=== PATIENT | female | born 1935 | race Caucasian/White ===

== ENCOUNTER 2018-01-07 10:06 | Emergency (ER) | payer MEDICARE, OTHER ==
[2018-01-07 10:45] LABS: Basophils # (A) 0.1 k/uL (0-0.2); Basophils % (A) 1 %; Eosinophils # (A) 0.1 k/uL (0-0.7); Eosinophils % (A) 1 %; HCT 38.6 % (34.0-46.0); HGB 12.5 gm/dL (11.4-16.0); Lymphocytes # (A) 1.1 k/uL (1.0-4.8); Lymphocytes % (A) 9 %; MCH 27.2 pg (25.0-35.0); MCHC 32.4 g/dL (31.0-37.0); MCV 84.1 fL (80.0-100.0); Mean Platelet Volume 6.8; Monocytes # (A) 0.7 k/uL (0-1.0); Monocytes % (A) 6 %; Neutrophils # (A) 10.3 k/uL (1.3-7.7); Neutrophils % (A) 83 %; Platelet Count 365 k/uL (150-450); RBC 4.58 m/uL (3.80-5.40); RDW 13.5 % (11.5-15.5); WBC 12.4 k/uL (3.8-10.6)
[2018-01-07 10:54] LABS: INR 1.1 (<1.2); Partial Thromboplastin Time 23.3 sec (22.0-30.0); Prothrombin Time 10.4 sec (9.0-12.0)
[2018-01-07 10:57] LABS: ALT 15 U/L (9-52); AST 19 U/L (14-36); Albumin 3.8 g/dL (3.5-5.0); Alkaline Phosphatase 95 U/L (38-126); Anion Gap 14 mmol/L; Blood Urea Nitrogen 17 mg/dL (7-17); Calcium 9.3 mg/dL (8.4-10.2); Carbon Dioxide 24 mmol/L (22-30); Chloride 104 mmol/L (98-107); Glucose 113 mg/dL (74-99); Magnesium 2.3 mg/dL (1.6-2.3); Sodium 142 mmol/L (137-145); Total Bilirubin 0.3 mg/dL (0.2-1.3); Total Protein 6.9 g/dL (6.3-8.2)
[2018-01-07 11:04] LABS: Creatine Kinase 63 U/L (30-135)
--- NOTE | 2018-01-07 11:06 | ED ---
General Adult HPI - General Chief complaint: Altered Mental Status Stated complaint: Confusion Time Seen by Provider: 01/07/18 10:10 Source: patient, EMS, RN notes reviewed Mode of arrival: EMS Limitations: no limitations - History of Present Illness Initial comments: 82-year-old female sent over for evaluation of altered mental status from her primary care's office. She has been treated for UTI over the past several days. She has been going to the doctor's office in each day requesting instructions on how to take the medication and stating that she may have misplaced or lost her medication. Patient has no complaints at the time my evaluation. She has no headache. No weakness or numbness. No chest pain or shortness of breath. No abdominal pain. She states she does have some difficulty with memory and was just trying to get information on how to take her medication. She did have dysuria prior to starting antibiotics. According to EMS she is only taken one to 2 doses of this medication. Patient is alert and oriented at the time my evaluation. - Related Data Home Medications Medication Instructions Recorded Confirmed No Known Home Medications [No 01/07/18 01/07/18 Known Home Medications] Allergies Allergy/AdvReac Type Severity Reaction Status Date / Time No Known Allergies Allergy Verified 01/07/18 11:10 Review of Systems ROS Statement: Those systems with pertinent positive or pertinent negative responses have been documented in the HPI. ROS Other: All systems not noted in ROS Statement are negative. Past Medical History Past Medical History: Hypertension History of Any Multi-Drug Resistant Organisms: None Reported Past Surgical History: Appendectomy Past Psychological History: No Psychological Hx Reported Smoking Status: Never smoker Past Alcohol Use History: None Reported Past Drug Use History: None Reported General Exam Limitations: no limitations General appearance: alert, in no apparent distress Head exam: Present: atraumatic, normocephalic Eye exam: Present: normal appearance, PERRL, EOMI ENT exam: Present: normal exam Neck exam: Present: normal inspection. Absent: tenderness, meningismus Respiratory exam: Present: normal lung sounds bilaterally. Absent: respiratory distress Cardiovascular Exam: Present: regular rate, normal rhythm GI/Abdominal exam: Present: soft. Absent: distended, tenderness Extremities exam: Present: normal inspection, normal capillary refill. Absent: pedal edema Back exam: Present: normal inspection, full ROM Neurological exam: Present: alert, oriented X3, CN II-XII intact. Absent: motor sensory deficit Psychiatric exam: Present: normal affect, normal mood Skin exam: Present: warm, dry, intact. Absent: cyanosis, diaphoretic Course Vital Signs 01/07/18 01/07/18 10:10 12:10 Temperature 98.3 F Pulse Rate 96 95 Respiratory 20 19 Rate Blood Pressure 157/86 170/79 O2 Sat by Pulse 96 98 Oximetry EKG Findings - EKG Comments: EKG Findings:: Sinus rhythm with PAC, rate of 94, WI interval 120, QRS duration 82, QTC 427, no ST segment elevation or depression Medical Decision Making - Medical Decision Making 82-year-old female presenting for concern of altered mental status from her primary care's office. Patient states she was just simply trying to get information about a medication prescribed and he called paramedics and forced her against her will to come to the emergency department. She has no complaints. She is alert and oriented 4. She is able to provide her address, location of her car and is eager for discharge. I did complete an altered mental status workup in the emergency department includes head CT which is negative for intracranial hemorrhage or mass effect. Chest x-ray negative for focal pneumonia. Mild leukocytosis of 12.4. Left leg the normal limits. Urinalysis shows 5 WBCs and 3 red cells. Urine culture is pending. Patient will be given 1 g of IV ceftriaxone. She will be given a cab ride back to her car. Patient's mental status at the time my evaluation is normal. I see no indication for further testing or treatment at this time. - Lab Data Result diagrams: 01/07/18 10:25 01/07/18 10:25 Lab Results 01/07/18 01/07/18 01/07/18 Range/Units 10:25 10:25 10:25 WBC 12.4 H (3.8-10.6) k/uL RBC 4.58 (3.80-5.40) m/uL Hgb 12.5 (11.4-16.0) gm/dL Hct 38.6 (34.0-46.0) % MCV 84.1 (80.0-100.0) fL MCH 27.2 (25.0-35.0) pg MCHC 32.4 (31.0-37.0) g/dL RDW 13.5 (11.5-15.5) % Plt Count 365 (150-450) k/uL Neutrophils % 83 % Lymphocytes % 9 % Monocytes % 6 % Eosinophils % 1 % Basophils % 1 % Neutrophils # 10.3 H (1.3-7.7) k/uL Lymphocytes # 1.1 (1.0-4.8) k/uL Monocytes # 0.7 (0-1.0) k/uL Eosinophils # 0.1 (0-0.7) k/uL Basophils # 0.1 (0-0.2) k/uL PT (9.0-12.0) sec INR (<1.2) APTT (22.0-30.0) sec Sodium 142 (137-145) mmol/L Potassium 4.0 (3.5-5.1) mmol/L Chloride 104 (98-107) mmol/L Carbon Dioxide 24 (22-30) mmol/L Anion Gap 14 mmol/L BUN 17 (7-17) mg/dL Creatinine 0.50 L (0.52-1.04) mg/dL Est GFR (CKD-EPI)AfAm >90 (>60 ml/min/1.73 sqM) Est GFR (CKD-EPI)NonAf >90 (>60 ml/min/1.73 sqM) Glucose 113 H (74-99) mg/dL Plasma Lactic Acid Lee (0.7-2.0) mmol/L Calcium 9.3 (8.4-10.2) mg/dL Magnesium 2.3 (1.6-2.3) mg/dL Total Bilirubin 0.3 (0.2-1.3) mg/dL AST 19 (14-36) U/L ALT 15 (9-52) U/L Alkaline Phosphatase 95 (38-126) U/L Total Creatine Kinase 63 (30-135) U/L CK-MB (CK-2) 1.0 (0.0-2.4) ng/mL CK-MB (CK-2) Rel Index 1.6 Troponin I <0.012 (0.000-0.034) ng/mL Total Protein 6.9 (6.3-8.2) g/dL Albumin 3.8 (3.5-5.0) g/dL Urine Color Urine Appearance (Clear) Urine pH (5.0-8.0) Ur Specific [place] (1.001-1.035) Urine Protein (Negative) Urine Glucose (UA) (Negative) Urine Ketones (Negative) Urine Blood (Negative) Urine Nitrite (Negative) Urine Bilirubin (Negative) Urine Urobilinogen (<2.0) mg/dL Ur Leukocyte Esterase (Negative) Urine RBC (0-5) /hpf Urine WBC (0-5) /hpf Ur Squamous Epith Cells (0-4) /hpf Urine Mucus (None) /hpf 01/07/18 01/07/18 01/07/18 Range/Units 10:25 10:25 12:00 WBC (3.8-10.6) k/uL RBC (3.80-5.40) m/uL Hgb (11.4-16.0) gm/dL Hct (34.0-46.0) % MCV (80.0-100.0) fL MCH (25.0-35.0) pg MCHC (31.0-37.0) g/dL RDW (11.5-15.5) % Plt Count (150-450) k/uL Neutrophils % % Lymphocytes % % Monocytes % % Eosinophils % % Basophils % % Neutrophils # (1.3-7.7) k/uL Lymphocytes # (1.0-4.8) k/uL Monocytes # (0-1.0) k/uL Eosinophils # (0-0.7) k/uL Basophils # (0-0.2) k/uL PT 10.4 (9.0-12.0) sec INR 1.1 (<1.2) APTT 23.3 (22.0-30.0) sec Sodium (137-145) mmol/L Potassium (3.5-5.1) mmol/L Chloride (98-107) mmol/L Carbon Dioxide (22-30) mmol/L Anion Gap mmol/L BUN (7-17) mg/dL Creatinine (0.52-1.04) mg/dL Est GFR (CKD-EPI)AfAm (>60 ml/min/1.73 sqM) Est GFR (CKD-EPI)NonAf (>60 ml/min/1.73 sqM) Glucose (74-99) mg/dL Plasma Lactic Acid Lee 1.0 (0.7-2.0) mmol/L Calcium (8.4-10.2) mg/dL Magnesium (1.6-2.3) mg/dL Total Bilirubin (0.2-1.3) mg/dL AST (14-36) U/L ALT (9-52) U/L Alkaline Phosphatase (38-126) U/L Total Creatine Kinase (30-135) U/L CK-MB (CK-2) (0.0-2.4) ng/mL CK-MB (CK-2) Rel Index Troponin I (0.000-0.034) ng/mL Total Protein (6.3-8.2) g/dL Albumin (3.5-5.0) g/dL Urine Color Yellow Urine Appearance Clear (Clear) Urine pH 6.5 (5.0-8.0) Ur Specific [place] 1.016 (1.001-1.035) Urine Protein Trace H (Negative) Urine Glucose (UA) Negative (Negative) Urine Ketones Negative (Negative) Urine Blood Small H (Negative) Urine Nitrite Negative (Negative) Urine Bilirubin Negative (Negative) Urine Urobilinogen 2.0 (<2.0) mg/dL Ur Leukocyte Esterase Moderate H (Negative) Urine RBC 5 (0-5) /hpf Urine WBC 3 (0-5) /hpf Ur Squamous Epith Cells 2 (0-4) /hpf Urine Mucus Many H (None) /hpf Disposition Clinical Impression: UTI (urinary tract infection) Disposition: HOME SELF-CARE Condition: Good Instructions: Urinary Tract Infection in Women (ED) Is patient prescribed a controlled substance at d/c from ED?: No Referrals: Yue Sweeney MD [Primary Care Provider] - 1-2 days Time of Disposition: 12:43
--- NOTE | 2018-01-07 11:08 | XR ---
EXAMINATION TYPE: XR chest 2V DATE OF EXAM: 01/07/2018 COMPARISON: Chest x-ray June 20, 2016. HISTORY: Weakness and confusion. TECHNIQUE: Frontal and lateral views of the chest are obtained. FINDINGS: There is chronic parenchymal change without suspicious focal air space opacity, pleural ef fusion, or pneumothorax seen. The cardiac silhouette size is enlarged with atherosclerotic and ectat ic thoracic aorta. The osseous structures are demineralized. Underlying S-shaped scoliosis is prese nt. IMPRESSION: Chronic changes and cardiomegaly without acute pulmonary process.
--- NOTE | 2018-01-07 11:08 | CT ---
EXAMINATION TYPE: CT brain wo con DATE OF EXAM: 01/07/2018 COMPARISON: 06/20/2016 INDICATION: Altered mental status DLP: 1153 mGycm, Automated exposure control for dose reduction was used. CONTRAST: None CT of the brain is performed utilizing 3 mm thick sections through the posterior fossa and 3 mm thick sections through the remaining calvarium. Study is performed within 24 hours of arrival to the hosp ital. No abnormal hyperdensity is present to suggest an acute intracranial hemorrhage. No mass lesion is evident. No acute infarcts are evident. Ventricles and sulci are slightly prominent for the patient age. Paranasal sinuses and mastoid air cells within the [id number] are clear. IMPRESSIONS: 1. Mild age-related atrophy.
[2018-01-07 11:17] LABS: Troponin I <0.012 ng/mL (0.000-0.034)
[2018-01-07 12:29] LABS: Appearance,Urine Clear (Clear); Bilirubin,Urine Negative (Negative); Blood,Urine Small (Negative); Color,Urine Yellow; Glucose,Urine (UA) Negative (Negative); Ketones,Urine Negative (Negative); Leukocyte Esterase,Urine Moderate (Negative); Mucus,Urine Many /hpf; Nitrite,Urine Negative (Negative); PH, Urine 6.5 (5.0-8.0); Protein,Urine Trace (Negative); RBC,Urine 5 /hpf (0-5); Specific Gravity,Urine 1.016 (1.001-1.035); Squamous Epithelial Cell,Urine 2 /hpf (0-4); WBC,Urine 3 /hpf (0-5)
[2018-01-07] MEDS ORDERED: cefTRIAXone IN SWFI 1,000 MG/10 ML SYRINGE IVP STA (12:31)
[2018-01-07 12:50] VITALS: PULSE 91; RESP 18; TEMP 97.5
[2018-01-07 12:53] VITALS: BP 149/70
== END 2018-01-07 13:01 | disposition home or self-care (01) ==
LOC: EC 10:06
DX: N39.0 Urinary tract infection, site not specified (principal); D72.829 Elevated white blood cell count, unspecified; Z90.49 Acquired absence of other specified parts of digestive tract
CPT/HCPCS: 36415; 93005; 80053; 82550; 82553; 83605; 83735; 84484; 85025; 85610; 85730; 81001; 87040; 87086; 71046; 70450; 99285; 96374; J0696

== ENCOUNTER 2018-12-21 14:39 | Emergency (ER) | payer MEDICARE, OTHER ==
--- NOTE | 2018-12-21 15:32 | ED ---
General Adult HPI - General Source: patient, EMS, RN notes reviewed Mode of arrival: EMS Limitations: altered mental status <Chris Jewell - Last Filed: 12/21/18 15:27> <Harsha Collazo - Last Filed: 12/21/18 21:23> - General Chief complaint: Psychiatric Symptoms Stated complaint: Mental health Time Seen by Provider: 12/21/18 14:58 - History of Present Illness Initial comments: Patient 83-year-old female presented to the emergency room today by EMS, with chief complaint of a psychiatric evaluation. Patient currently staying at a nursing facility. Apparently made comments and staff overheard that she was going to try to hurt her roommate and also her self. They did petition the patient. Patient does have history of dementia. She states she did not make any such statements. She does admit that she would like to have a different room as her roommate apparently is sick and people are gowning up to go into see her. She states that there is only a pad that is the 2 of them and she is concerned for herself because of this. Patient denies any thoughts of hurting herself or others. She denies any other complaints. Patient denies any recent fever, chills, shortness of breath, chest pain, back pain, abdominal pain, headaches or visual changes, or any other complaints. (Chris Jewell) - Related Data Home Medications Medication Instructions Recorded Confirmed Aspirin [Adult Low Dose Aspirin EC] 81 mg PO DAILY 12/21/18 12/21/18 Escitalopram [Lexapro] 10 mg PO DAILY 12/21/18 12/21/18 Ferrous Sulfate [Feosol] 325 mg PO DAILY 12/21/18 12/21/18 Magnesium Hydroxide [Milk of 1,200 mg PO DAILY PRN 12/21/18 12/21/18 Magnesia] Polyethylene Glycol 3350 [Miralax] 17 gm PO DAILY 12/21/18 12/21/18 busPIRone HCL 10 mg PO BID 12/21/18 12/21/18 Allergies Allergy/AdvReac Type Severity Reaction Status Date / Time No Known Allergies Allergy Verified 12/21/18 14:51 Review of Systems ROS Other: All systems not noted in ROS Statement are negative. <Chris Jewell - Last Filed: 12/21/18 15:27> ROS Other: All systems not noted in ROS Statement are negative. <Harsha Collazo - Last Filed: 12/21/18 21:23> ROS Statement: Those systems with pertinent positive or pertinent negative responses have been documented in the HPI. Past Medical History Past Medical History: Chest Pain / Angina, Dementia, Hypertension Additional Past Medical History / Comment(s): dementia pulmonary fibrosis and angina anxiety History of Any Multi-Drug Resistant Organisms: None Reported Past Surgical History: Appendectomy Past Psychological History: No Psychological Hx Reported, Anxiety Smoking Status: Former smoker Past Alcohol Use History: None Reported Past Drug Use History: None Reported <Chris Jewell - Last Filed: 12/21/18 15:27> General Exam Limitations: altered mental status <Chris Jewell - Last Filed: 12/21/18 15:27> - General Exam Comments Initial Comments: General: The patient is awake and alert, in no distress, and does not appear acutely ill. Eye: There is normal conjunctiva bilaterally. No signs of icterus. Ears, nose, mouth and throat: There are moist mucous membranes and no oral lesions. Neck: The neck is supple Cardiovascular: There is a regular rate and rhythm. No murmur, rub or gallop is appreciated. Respiratory: Lungs are clear to auscultation, respirations are non-labored, breath sounds are equal. No wheezes, stridor, rales, or rhonchi. Musculoskeletal: Normal ROM, no tenderness. . Neurological: A&O x 3. CN II-XII intact, There are no obvious motor or sensory deficits. Coordination appears grossly intact. Speech is normal. Skin: Skin is warm and dry and no rashes or lesions are noted. Psychiatric: Cooperative (Chris Jewell) Course Vital Signs 12/21/18 12/21/18 14:42 18:10 Temperature 97.8 F Pulse Rate 64 78 Respiratory 18 18 Rate Blood Pressure 103/63 119/57 O2 Sat by Pulse 97 97 Oximetry Medical Decision Making - Lab Data Result diagrams: 12/21/18 15:38 12/21/18 15:38 <Harsha Collazo - Last Filed: 12/21/18 21:23> - Medical Decision Making Patient was seen by mental health services who feels patient is clear for discharge. Patient reevaluated. Patient denies any suicidal or homicidal thou ghts. Patient does not recall previous threats. Patient does contract for safety. (Harsha Collazo) - Lab Data Lab Results 12/21/18 12/21/18 12/21/18 Range/Units 15:38 15:38 17:15 WBC 10.1 (3.8-10.6) k/uL RBC 4.14 (3.80-5.40) m/uL Hgb 10.3 L (11.4-16.0) gm/dL Hct 33.4 L (34.0-46.0) % MCV 80.6 (80.0-100.0) fL MCH 24.7 L (25.0-35.0) pg MCHC 30.7 L (31.0-37.0) g/dL RDW 15.3 (11.5-15.5) % Plt Count 353 (150-450) k/uL Neutrophils % 73 % Lymphocytes % 16 % Monocytes % 8 % Eosinophils % 1 % Basophils % 1 % Neutrophils # 7.3 (1.3-7.7) k/uL Lymphocytes # 1.6 (1.0-4.8) k/uL Monocytes # 0.8 (0-1.0) k/uL Eosinophils # 0.1 (0-0.7) k/uL Basophils # 0.1 (0-0.2) k/uL Hypochromasia Moderate Sodium 135 L (137-145) mmol/L Potassium 4.5 (3.5-5.1) mmol/L Chloride 102 (98-107) mmol/L Carbon Dioxide 26 (22-30) mmol/L Anion Gap 7 mmol/L BUN 20 H (7-17) mg/dL Creatinine 0.55 (0.52-1.04) mg/dL Est GFR (CKD-EPI)AfAm >90 (>60 ml/min/1.73 sqM) Est GFR (CKD-EPI)NonAf 88 (>60 ml/min/1.73 sqM) Glucose 78 (74-99) mg/dL Calcium 8.9 (8.4-10.2) mg/dL Urine Color Light Yellow Urine Appearance Clear (Clear) Urine pH 6.5 (5.0-8.0) Ur Specific [place] 1.010 (1.001-1.035) Urine Protein Negative (Negative) Urine Glucose (UA) Negative (Negative) Urine Ketones Negative (Negative) Urine Blood Small H (Negative) Urine Nitrite Negative (Negative) Urine Bilirubin Negative (Negative) Urine Urobilinogen <2.0 (<2.0) mg/dL Ur Leukocyte Esterase Large H (Negative) Urine RBC 6 H (0-5) /hpf Urine WBC 21 H (0-5) /hpf Ur Squamous Epith Cells 1 (0-4) /hpf Urine Bacteria Occasional H (None) /hpf Hyaline Casts 7 H (0-2) /lpf Urine Mucus Rare H (None) /hpf Urine Opiates Screen Not Detected (NotDetected) Ur Oxycodone Screen Not Detected (NotDetected) Urine Methadone Screen Not Detected (NotDetected) Ur Propoxyphene Screen Not Detected (NotDetected) Ur Barbiturates Screen Not Detected (NotDetected) U Tricyclic Antidepress Not Detected (NotDetected) Ur Phencyclidine Scrn Not Detected (NotDetected) Ur Amphetamines Screen Not Detected (NotDetected) U Methamphetamines Scrn Not Detected (NotDetected) U Benzodiazepines Scrn Not Detected (NotDetected) Urine Cocaine Screen Not Detected (NotDetected) U Marijuana (THC) Screen Not Detected (NotDetected) Serum Alcohol <10 mg/dL Disposition <Chris Jewell - Last Filed: 12/21/18 15:27> Is patient prescribed a controlled substance at d/c from ED?: No Time of Disposition: 21:23 <Harsha Collazo - Last Filed: 12/21/18 21:23> Clinical Impression: Dementia, Threatening suicide Disposition: HOME SELF-CARE Condition: Stable Instructions (If sedation given, give patient instructions): Dementia (ED) Additional Instructions: Please follow-up with primary care physician in the next day or 2 for recheck. Please follow-up mental health services as directed. Return for thoughts of harming self or others, worsening symptoms or other concerns. Referrals: Robert Finnegan MD [STAFF PHYSICIAN] - 1-2 days
[2018-12-21 15:58] LABS: Basophils # (A) 0.1 k/uL (0-0.2); Basophils % (A) 1 %; Eosinophils # (A) 0.1 k/uL (0-0.7); Eosinophils % (A) 1 %; HCT 33.4 % (34.0-46.0); HGB 10.3 gm/dL (11.4-16.0); Hypochromasia Moderate; Lymphocytes # (A) 1.6 k/uL (1.0-4.8); Lymphocytes % (A) 16 %; MCH 24.7 pg (25.0-35.0); MCHC 30.7 g/dL (31.0-37.0); MCV 80.6 fL (80.0-100.0); Mean Platelet Volume 6.9; Monocytes # (A) 0.8 k/uL (0-1.0); Monocytes % (A) 8 %; Neutrophils # (A) 7.3 k/uL (1.3-7.7); Neutrophils % (A) 73 %; Platelet Count 353 k/uL (150-450); RBC 4.14 m/uL (3.80-5.40); RDW 15.3 % (11.5-15.5); WBC 10.1 k/uL (3.8-10.6)
[2018-12-21 16:06] LABS: Alcohol <10 mg/dL; Anion Gap 7 mmol/L; Blood Urea Nitrogen 20 mg/dL (7-17); Calcium 8.9 mg/dL (8.4-10.2); Carbon Dioxide 26 mmol/L (22-30); Chloride 102 mmol/L (98-107); Glucose 78 mg/dL (74-99); Potassium 4.5 mmol/L (3.5-5.1); Sodium 135 mmol/L (137-145)
[2018-12-21 17:59] LABS: Appearance,Urine Clear (Clear); Bacteria,Urine Occasional /hpf; Bilirubin,Urine Negative (Negative); Blood,Urine Small (Negative); Color,Urine Light Yellow; Glucose,Urine (UA) Negative (Negative); Hyaline Casts,Urine 7 /lpf (0-2); Ketones,Urine Negative (Negative); Leukocyte Esterase,Urine Large (Negative); Mucus,Urine Rare /hpf; Nitrite,Urine Negative (Negative); PH, Urine 6.5 (5.0-8.0); Protein,Urine Negative (Negative); RBC,Urine 6 /hpf (0-5); Squamous Epithelial Cell,Urine 1 /hpf (0-4); Urobilinogen,Urine <2.0 mg/dL (<2.0)
[2018-12-21 18:07] LABS: Amphetamine Screen,Urine Not Detected (NotDetected); Barbiturate Screen,Urine Not Detected (NotDetected); Benzodiazepines Screen,Urine Not Detected (NotDetected); Cocaine Screen,Urine Not Detected (NotDetected); Methadone Screen, Urine Not Detected (NotDetected); Opiate Screen,Urine Not Detected (NotDetected); Oxycodone Screen, Urine Not Detected (NotDetected); Phencyclidine Screen,Urine Not Detected (NotDetected); Tricyclic Antidepressant,Urine Not Detected (NotDetected); Urn Cannabinoid Scrn Not Detected (NotDetected)
[2018-12-21 21:42] VITALS: BP 132/72; PULSE 96; RESP 16; TEMP 97
== END 2018-12-21 22:02 | disposition home or self-care (01) ==
LOC: EC 14:39
DX: F03.90 Unspecified dementia, unspecified severity, without behavioral disturbance, psychotic disturbance, mood disturbance, and anxiety (principal); R45.851 Suicidal ideations; I10 Essential (primary) hypertension; F41.9 Anxiety disorder, unspecified; Z87.891 Personal history of nicotine dependence; Z79.82 Long term (current) use of aspirin; Z79.899 Other long term (current) drug therapy
CPT/HCPCS: 99284 ×2; 36415; 80048; 85025; 81001; 80306; 87086; 87077; 87186; G0480; 80320

== ENCOUNTER 2022-05-10 16:10 | Inpatient (IN) | payer MEDICARE ==
--- NOTE | 2022-05-10 16:29 | ED ---
General Adult HPI - General Chief complaint: Weakness Stated complaint: UTI Time Seen by Provider: 05/10/22 16:17 Source: EMS Mode of arrival: EMS Limitations: altered mental status - History of Present Illness Initial comments: Patient presents to the ED by ambulance from her fdc for evaluation. Per EMS, the fdc reported that the patient has had a fever and has been generally weak today. Patient has baseline dementia, and she is at her baseline mental status currently per fdc report. History from the patient is very limited due to her dementia, but she denies having any pain at this time. Patient is able to tell me her name. Patient is otherwise completely disoriented and not answering questions appropriately. - Related Data Home Medications Medication Instructions Recorded Confirmed Aspirin [Adult Low Dose Aspirin EC] 81 mg PO DAILY 12/21/18 12/21/18 Escitalopram [Lexapro] 10 mg PO DAILY 12/21/18 12/21/18 Ferrous Sulfate [Feosol] 325 mg PO DAILY 12/21/18 12/21/18 Magnesium Hydroxide [Milk of 1,200 mg PO DAILY PRN 12/21/18 12/21/18 Magnesia] busPIRone HCL 10 mg PO BID 12/21/18 12/21/18 polyethylene glycoL 3350 [Miralax] 17 gm PO DAILY 12/21/18 12/21/18 Allergies Allergy/AdvReac Type Severity Reaction Status Date / Time No Known Allergies Allergy Verified 12/21/18 14:51 Review of Systems ROS Statement: Those systems with pertinent positive or pertinent negative responses have been documented in the HPI. ROS Other: All systems not noted in ROS Statement are negative. Past Medical History Past Medical History: Chest Pain / Angina, Dementia, Hypertension Additional Past Medical History / Comment(s): dementia pulmonary fibrosis and angina anxiety History of Any Multi-Drug Resistant Organisms: None Reported Past Surgical History: Appendectomy Past Psychological History: No Psychological Hx Reported, Anxiety Smoking Status: Never smoker Past Alcohol Use History: None Reported Past Drug Use History: None Reported General Exam Limitations: altered mental status General appearance: alert, in no apparent distress Head exam: Present: atraumatic, normocephalic Eye exam: Present: normal appearance, PERRL ENT exam: Present: normal oropharynx, mucous membranes moist Neck exam: Present: other (No nuchal rigidity or meningeal signs are present on examination; trachea is in midline). Absent: tenderness, meningismus Respiratory exam: Present: normal lung sounds bilaterally. Absent: respiratory distress, wheezes, rales, rhonchi, stridor Cardiovascular Exam: Present: regular rate, normal rhythm, normal heart sounds, other (Normal radial pulses bilaterally) GI/Abdominal exam: Present: soft. Absent: distended, tenderness, guarding External exam: Present: normal external exam Extremities exam: Absent: tenderness, pedal edema, calf tenderness Back exam: Absent: CVA tenderness (R), CVA tenderness (L) Neurological exam: Present: alert, other (Patient is only oriented to self). Absent: motor sensory deficit Psychiatric exam: Present: normal affect, normal mood Skin exam: Present: warm, dry, intact, normal color Course Vital Signs 05/10/22 05/10/22 16:22 17:57 Temperature 101.7 F H 99.4 F Pulse Rate 99 114 H Respiratory 18 22 Rate Blood Pressure 109/81 179/67 O2 Sat by Pulse 94 L 93 L Oximetry - Reevaluation(s) Reevaluation #1: 05/10/22 19:19 Case, H&P, test results and ED management thus far were discussed with Dr. [place]. He accepts hospital admission. He has no further recommendations at this time. EKG Findings - EKG Comments: EKG Findings:: Sinus tachycardia with premature supraventricular complexes, ventricular rate of 106 bpm, normal ME and QRS intervals, normal QT interval, normal axis, anterolateral T-wave abnormality Medical Decision Making - Medical Decision Making I suspect that the patient's acute febrile illness and generalized weakness are likely due to UTI with sepsis given her UA findings. Patient has been treated with IV Rocephin in the ED. Patient's lactate level is within normal limits and she is not hypotensive. Will admit the patient to the hospital for continued antibiotic treatment and monitoring. Dr. Colorado has accepted hospital admission. - Lab Data Result diagrams: 05/10/22 17:12 05/10/22 17:12 Lab Results 05/10/22 05/10/22 05/10/22 Range/Units 17:12 17:12 17:12 WBC 14.0 H (3.8-10.6) k/uL RBC 4.22 (3.80-5.40) m/uL Hgb 12.2 (11.4-16.0) gm/dL Hct 38.4 (34.0-46.0) % MCV 91.0 (80.0-100.0) fL MCH 29.0 (25.0-35.0) pg MCHC 31.9 (31.0-37.0) g/dL RDW 13.6 (11.5-15.5) % Plt Count 153 (150-450) k/uL MPV 8.0 Neutrophils % 79 % Lymphocytes % 9 % Monocytes % 9 % Eosinophils % 1 % Basophils % 0 % Neutrophils # 11.1 H (1.3-7.7) k/uL Lymphocytes # 1.3 (1.0-4.8) k/uL Monocytes # 1.2 H (0-1.0) k/uL Eosinophils # 0.1 (0-0.7) k/uL Basophils # 0.1 (0-0.2) k/uL PT (9.0-12.0) sec INR (<1.2) APTT (22.0-30.0) sec Sodium (137-145) mmol/L Potassium (3.5-5.1) mmol/L Chloride (98-107) mmol/L Carbon Dioxide (22-30) mmol/L Anion Gap mmol/L BUN (7-17) mg/dL Creatinine (0.52-1.04) mg/dL Est GFR (CKD-EPI)AfAm (>60 ml/min/1.73 sqM) Est GFR (CKD-EPI)NonAf (>60 ml/min/1.73 sqM) Glucose (74-99) mg/dL Plasma Lactic Acid Lee (0.7-2.0) mmol/L Calcium (8.4-10.2) mg/dL Total Bilirubin (0.2-1.3) mg/dL AST (14-36) U/L ALT (4-34) U/L Alkaline Phosphatase (38-126) U/L Troponin I (0.000-0.034) ng/mL Total Protein (6.3-8.2) g/dL Albumin (3.5-5.0) g/dL Urine Color Yellow Urine Appearance Turbid H (Clear) Urine pH 6.0 (5.0-8.0) Ur Specific [place] 1.019 (1.001-1.035) Urine Protein 2+ H (Negative) Urine Glucose (UA) Negative (Negative) Urine Ketones Negative (Negative) Urine Blood Moderate H (Negative) Urine Nitrite Negative (Negative) Urine Bilirubin Negative (Negative) Urine Urobilinogen <2.0 (<2.0) mg/dL Ur Leukocyte Esterase Large H (Negative) Urine RBC 34 H (0-5) /hpf Urine WBC >182 H (0-5) /hpf Urine WBC Clumps Many H (None) /hpf Urine Bacteria Many H (None) /hpf Urine Mucus Few H (None) /hpf Influenza Type A (PCR) Not Detected (Not Detectd) Influenza Type B (PCR) Not Detected (Not Detectd) RSV (PCR) Not Detected (Not Detectd) SARS-CoV-2 (PCR) Not Detected (Not Detectd) 05/10/22 05/10/22 05/10/22 Range/Units 17:12 17:12 17:12 WBC (3.8-10.6) k/uL RBC (3.80-5.40) m/uL Hgb (11.4-16.0) gm/dL Hct (34.0-46.0) % MCV (80.0-100.0) fL MCH (25.0-35.0) pg MCHC (31.0-37.0) g/dL RDW (11.5-15.5) % Plt Count (150-450) k/uL MPV Neutrophils % % Lymphocytes % % Monocytes % % Eosinophils % % Basophils % % Neutrophils # (1.3-7.7) k/uL Lymphocytes # (1.0-4.8) k/uL Monocytes # (0-1.0) k/uL Eosinophils # (0-0.7) k/uL Basophils # (0-0.2) k/uL PT 11.6 (9.0-12.0) sec INR 1.1 (<1.2) APTT 22.8 (22.0-30.0) sec Sodium 133 L (137-145) mmol/L Potassium 4.1 (3.5-5.1) mmol/L Chloride 102 (98-107) mmol/L Carbon Dioxide 22 (22-30) mmol/L Anion Gap 9 mmol/L BUN 24 H (7-17) mg/dL Creatinine 0.95 (0.52-1.04) mg/dL Est GFR (CKD-EPI)AfAm 64 (>60 ml/min/1.73 sqM) Est GFR (CKD-EPI)NonAf 55 (>60 ml/min/1.73 sqM) Glucose 118 H (74-99) mg/dL Plasma Lactic Acid Lee 1.7 (0.7-2.0) mmol/L Calcium 7.9 L (8.4-10.2) mg/dL Total Bilirubin 0.9 (0.2-1.3) mg/dL AST 110 H (14-36) U/L ALT 58 H (4-34) U/L Alkaline Phosphatase 107 (38-126) U/L Troponin I (0.000-0.034) ng/mL Total Protein 6.5 (6.3-8.2) g/dL Albumin 3.7 (3.5-5.0) g/dL Urine Color Urine Appearance (Clear) Urine pH (5.0-8.0) Ur Specific [place] (1.001-1.035) Urine Protein (Negative) Urine Glucose (UA) (Negative) Urine Ketones (Negative) Urine Blood (Negative) Urine Nitrite (Negative) Urine Bilirubin (Negative) Urine Urobilinogen (<2.0) mg/dL Ur Leukocyte Esterase (Negative) Urine RBC (0-5) /hpf Urine WBC (0-5) /hpf Urine WBC Clumps (None) /hpf Urine Bacteria (None) /hpf Urine Mucus (None) /hpf Influenza Type A (PCR) (Not Detectd) Influenza Type B (PCR) (Not Detectd) RSV (PCR) (Not Detectd) SARS-CoV-2 (PCR) (Not Detectd) 05/10/22 Range/Units 17:12 WBC (3.8-10.6) k/uL RBC (3.80-5.40) m/uL Hgb (11.4-16.0) gm/dL Hct (34.0-46.0) % MCV (80.0-100.0) fL MCH (25.0-35.0) pg MCHC (31.0-37.0) g/dL RDW (11.5-15.5) % Plt Count (150-450) k/uL MPV Neutrophils % % Lymphocytes % % Monocytes % % Eosinophils % % Basophils % % Neutrophils # (1.3-7.7) k/uL Lymphocytes # (1.0-4.8) k/uL Monocytes # (0-1.0) k/uL Eosinophils # (0-0.7) k/uL Basophils # (0-0.2) k/uL PT (9.0-12.0) sec INR (<1.2) APTT (22.0-30.0) sec Sodium (137-145) mmol/L Potassium (3.5-5.1) mmol/L Chloride (98-107) mmol/L Carbon Dioxide (22-30) mmol/L Anion Gap mmol/L BUN (7-17) mg/dL Creatinine (0.52-1.04) mg/dL Est GFR (CKD-EPI)AfAm (>60 ml/min/1.73 sqM) Est GFR (CKD-EPI)NonAf (>60 ml/min/1.73 sqM) Glucose (74-99) mg/dL Plasma Lactic Acid Lee (0.7-2.0) mmol/L Calcium (8.4-10.2) mg/dL Total Bilirubin (0.2-1.3) mg/dL AST (14-36) U/L ALT (4-34) U/L Alkaline Phosphatase (38-126) U/L Troponin I <0.012 (0.000-0.034) ng/mL Total Protein (6.3-8.2) g/dL Albumin (3.5-5.0) g/dL Urine Color Urine Appearance (Clear) Urine pH (5.0-8.0) Ur Specific [place] (1.001-1.035) Urine Protein (Negative) Urine Glucose (UA) (Negative) Urine Ketones (Negative) Urine Blood (Negative) Urine Nitrite (Negative) Urine Bilirubin (Negative) Urine Urobilinogen (<2.0) mg/dL Ur Leukocyte Esterase (Negative) Urine RBC (0-5) /hpf Urine WBC (0-5) /hpf Urine WBC Clumps (None) /hpf Urine Bacteria (None) /hpf Urine Mucus (None) /hpf Influenza Type A (PCR) (Not Detectd) Influenza Type B (PCR) (Not Detectd) RSV (PCR) (Not Detectd) SARS-CoV-2 (PCR) (Not Detectd) - Radiology Data Chest x-ray: No active cardiopulmonary disease. Atheromatous aorta. Disposition Clinical Impression: Acute febrile illness, Generalized weakness, UTI (urinary tract infection), Sepsis Disposition: ADMITTED IP TO THIS HOSP Condition: Stable Is patient prescribed a controlled substance at d/c from ED?: No Referrals: Frank Ramirez NPC [Primary Care Provider] - 1-2 days Time of Disposition: 19:37
[2022-05-10] MEDS ORDERED: ACETAMINOPHEN TAB 500 MG TAB PO STA (16:34)
--- NOTE | 2022-05-10 17:15 | XR ---
EXAMINATION TYPE: XR chest 1V portable DATE OF EXAM: 05/10/2022 COMPARISON: NONE HISTORY: Fever TECHNIQUE: Single view FINDINGS: There is no heart failure nor confluent pneumonic infiltrate. A splenic angles are clear. T here are no hilar masses. Thoracic aorta is atheromatous. No pleural effusion seen. Bony thorax is in tact. IMPRESSION: No active cardiopulmonary disease. Atheromatous aorta.
[2022-05-10 17:39] LABS: Basophils # (A) 0.1 k/uL (0-0.2); Basophils % (A) 0 %; Eosinophils # (A) 0.1 k/uL (0-0.7); Eosinophils % (A) 1 %; HCT 38.4 % (34.0-46.0); HGB 12.2 gm/dL (11.4-16.0); Lymphocytes # (A) 1.3 k/uL (1.0-4.8); Lymphocytes % (A) 9 %; MCHC 31.9 g/dL (31.0-37.0); Monocytes # (A) 1.2 k/uL (0-1.0); Monocytes % (A) 9 %; Neutrophils # (A) 11.1 k/uL (1.3-7.7); Neutrophils % (A) 79 %; Platelet Count 153 k/uL (150-450); RBC 4.22 m/uL (3.80-5.40); RDW 13.6 % (11.5-15.5)
[2022-05-10 17:45] LABS: Albumin 3.7 g/dL (3.5-5.0); Calcium 7.9 mg/dL (8.4-10.2); Potassium 4.1 mmol/L (3.5-5.1); Total Bilirubin 0.9 mg/dL (0.2-1.3); Total Protein 6.5 g/dL (6.3-8.2)
[2022-05-10 17:58] LABS: INR 1.1 (<1.2)
[2022-05-10 17:59] LABS: Appearance,Urine Turbid (Clear); Bacteria,Urine Many /hpf; Bilirubin,Urine Negative (Negative); Blood,Urine Moderate (Negative); Color,Urine Yellow; Glucose,Urine (UA) Negative (Negative); Ketones,Urine Negative (Negative); Leukocyte Esterase,Urine Large (Negative); Mucus,Urine Few /hpf; Nitrite,Urine Negative (Negative); Partial Thromboplastin Time 22.8 sec (22.0-30.0); Protein,Urine 2+ (Negative); Prothrombin Time 11.6 sec (9.0-12.0); RBC,Urine 34 /hpf (0-5); Specific Gravity,Urine 1.019 (1.001-1.035); Urobilinogen,Urine <2.0 mg/dL (<2.0); WBC,Urine >182 /hpf (0-5)
[2022-05-10] MEDS ORDERED: ACETAMINOPHEN TAB 325 MG TAB PO PRN (19:38)
--- NOTE | 2022-05-10 22:35 | P.HPIM ---
History of Present Illness H&P Date: 05/10/22 The patient is an 87-year-old female with a PMH of dementia, hypertension who was sent in from skilled nursing due to fever and reported generalized weakness. No meaningful history could be obtained from the patient due to her underlying dementia. History thereby obtained from the chart and from the ED physician. The patient was noted to have a fever with T-max 102.4 and was getting progressively weak at the nursing facility area. The patient was only oriented to self and thereby no meaningful history could be obtained. In the emergency room, EKG revealed sinus tachycardia at 106 bpm with APCs and T-wave inversion in precordial leads V3 to V5. Chest x-ray was unremarkable. Laboratory pamela luation revealed a UA consistent with UTI with leukocytosis at 14.0 AST 110, and ALT 58 with troponin less than 0.012 with lactic acid 1.7. Review of systems: Pertinent positives and negatives as discussed in HPI, a complete review of systems was performed and all other systems are negative. Physical examination: General: non toxic, no distress, appears at stated age, normal weight Derm: no unusual rashes/lesions, warm Head: atraumatic, normocephalic, symmetric Eyes: EOMI, no lid lag, anicteric sclera, pupils equal round reactive to light ENT: Nose and ears atraumatic Neck: No cervical lymphadenopathy, trachea midline, supple Mouth: no lip lesion, mucus membranes moist Cardiovascular: S1S2 reg, no murmur, positive dorsalis pedis pulse bilateral, no edema Lungs: CTA bilateral, no rhonchi, no rales, no accessory muscle use Abdominal: soft, nontender to palpation, no guarding Ext: mNo gross muscle atrophy, no contractures Neuro: No gross focal neuro deficits, moving all extremities Psych: Confused, oriented only to self Assessment/plan Sepsis secondary to UTI -Continue ceftriaxone -Follow up blood and urine cultures -Gentle IV hydration Chronic conditions: Dementia, hypertension -Continue with home meds Abnormal LFTs -Likely due to ongoing sepsis -Monitor for now DVT prophylaxis -Heparin subcu The patient is admitted with an anticipated greater than 2 midnight stay for evaluation of UTI sepsis. CODE STATUS: Full Code Discussed with: Patient Anticipated discharge date: 2-[address]: Home Past Medical History Past Medical History: Chest Pain / Angina, Dementia, Hypertension Additional Past Medical History / Comment(s): dementia pulmonary fibrosis and angina anxiety History of Any Multi-Drug Resistant Organisms: None Reported Past Surgical History: Appendectomy Past Psychological History: No Psychological Hx Reported, Anxiety Smoking Status: Never smoker Past Alcohol Use History: None Reported Past Drug Use History: None Reported - Past Family History Father Additional Family Medical History / Comment(s): Unable to obtain due to mental status Medications and Allergies Home Medications Medication Instructions Recorded Confirmed Type Aspirin [Adult Low Dose Aspirin EC] 81 mg PO DAILY 12/21/18 05/10/22 History Ferrous Sulfate [Feosol] 325 mg PO DAILY 12/21/18 05/10/22 History Magnesium Hydroxide [Milk of 1,200 mg PO DAILY PRN 12/21/18 05/10/22 History Magnesia] busPIRone HCL 10 mg PO TID 12/21/18 05/10/22 History ALPRAZolam [Xanax] 0.25 mg PO Q8H PRN 05/10/22 05/10/22 History Acetaminophen Tab [Tylenol Tab] 500 mg PO Q6H PRN 05/10/22 05/10/22 History Atorvastatin [Lipitor] 20 mg PO HS 05/10/22 05/10/22 History Docusate [Colace] 200 mg PO HS PRN 05/10/22 05/10/22 History Escitalopram [Lexapro] 20 mg PO DAILY 05/10/22 05/10/22 History Lactose-Reduced Food [Boost] 1 can PO W/LUNCH 05/10/22 05/10/22 History Mirtazapine [Remeron] 15 mg PO HS 05/10/22 05/10/22 History Nystatin 100,000 Unit/gm Powd 1 applic TOPICAL BID PRN 05/10/22 05/10/22 History [Mycostatin Powder] OLANZapine 5 mg PO HS 05/10/22 05/10/22 History diphenhydrAMINE & Zinc Cream 1 applic TOPICAL TID PRN 05/10/22 05/10/22 History [Benadryl Cream] guaiFENesin [guaiFENesin Oral 400 mg PO Q6H PRN 05/10/22 05/10/22 History Solution] Allergies Allergy/AdvReac Type Severity Reaction Status Date / Time No Known Allergies Allergy Verified 05/10/22 21:45 Physical Exam Vitals: Vital Signs Temp Pulse Resp BP Pulse Ox 05/10/22 17:57 99.4 F 114 H 22 179/67 93 L 05/10/22 16:22 101.7 F H 99 18 109/81 94 L Intake and Output 05/10/22 05/10/22 05/10/22 06:59 14:59 22:59 Output Total 400 Balance -400 Output: Urine 400 Straight 400 Other: Weight 63.503 kg Results CBC & Chem 7: 05/10/22 17:12 05/10/22 17:12 Labs: Abnormal Lab Results - Last 24 Hours (Table) 05/10/22 05/10/22 05/10/22 Range/Units 17:12 17:12 17:12 WBC 14.0 H (3.8-10.6) k/uL Neutrophils # 11.1 H (1.3-7.7) k/uL Monocytes # 1.2 H (0-1.0) k/uL Sodium 133 L (137-145) mmol/L BUN 24 H (7-17) mg/dL Glucose 118 H (74-99) mg/dL Calcium 7.9 L (8.4-10.2) mg/dL AST 110 H (14-36) U/L ALT 58 H (4-34) U/L Urine Appearance Turbid H (Clear) Urine Protein 2+ H (Negative) Urine Blood Moderate H (Negative) Ur Leukocyte Esterase Large H (Negative) Urine RBC 34 H (0-5) /hpf Urine WBC >182 H (0-5) /hpf Urine WBC Clumps Many H (None) /hpf Urine Bacteria Many H (None) /hpf Urine Mucus Few H (None) /hpf
[2022-05-10] MEDS: SODIUM CHLORIDE 0.9% 1,000 ML IV SCH (22:41)
[2022-05-11] MEDS: HEPARIN SODIUM,PORCINE/PF 5,000 UNIT/0.5 ML SYRINGE SQ SCH ×3 (01:10→16:02)
[2022-05-11] MEDS: MELATONIN 5 MG TABLET PO SCH ×2 (04:34→21:11)
[2022-05-11] MEDS: SODIUM CHLORIDE 0.9% 1,000 ML IV SCH ×2 (08:29→16:02)
[2022-05-11] MEDS: ASPIRIN 81 MG PO SCH (08:29)
[2022-05-11 11:18] LABS: Basophils % (A) 0 %; Eosinophils # (A) 0.1 k/uL (0-0.7); Eosinophils % (A) 1 %; HCT 35.9 % (34.0-46.0); HGB 11.7 gm/dL (11.4-16.0); Lymphocytes # (A) 1.1 k/uL (1.0-4.8); Lymphocytes % (A) 9 %; MCHC 32.6 g/dL (31.0-37.0); Mean Platelet Volume 7.9; Monocytes # (A) 0.8 k/uL (0-1.0); Monocytes % (A) 7 %; Neutrophils # (A) 10.1 k/uL (1.3-7.7); Neutrophils % (A) 82 %; Platelet Count 133 k/uL (150-450); RDW 13.6 % (11.5-15.5); WBC 12.4 k/uL (3.8-10.6)
[2022-05-11 11:27] LABS: ALT 48 U/L (4-34); AST 58 U/L (14-36); African American GFR (CKD) 87 (>60 ml/min/1.73 sqM); Albumin 3.2 g/dL (3.5-5.0); Albumin/Globulin Ratio 1.3; Alkaline Phosphatase 95 U/L (38-126); Anion Gap 8 mmol/L; Blood Urea Nitrogen 17 mg/dL (7-17); Calcium 7.8 mg/dL (8.4-10.2); Carbon Dioxide 23 mmol/L (22-30); Chloride 105 mmol/L (98-107); Globulin 2.5 g/dL; Glucose 153 mg/dL (74-99); Non-African American GFR(CKD) 76 (>60 ml/min/1.73 sqM); Potassium 3.5 mmol/L (3.5-5.1); Sodium 136 mmol/L (137-145); Total Bilirubin 0.6 mg/dL (0.2-1.3); Total Protein 5.7 g/dL (6.3-8.2)
--- NOTE | 2022-05-11 12:14 | P.PN ---
Subjective Progress Note Date: 05/11/22 Principal diagnosis: weakness Patient was able to tell me her name and that she was at the hospital today, denied having any pain or shortness of breath. No fevers. Objective - Vital Signs Vital signs: Vital Signs Temp 99.0 F 05/11/22 08:00 Pulse 81 05/11/22 08:00 Resp 16 05/11/22 08:00 BP 110/57 05/11/22 08:00 Pulse Ox 94 L 05/11/22 08:00 FiO2 Intake & Output 05/10/22 05/11/22 05/11/22 18:59 06:59 18:59 Output Total 400 Balance -400 Weight 63.503 kg Output: Urine 400 Straight 400 Other: Voiding Method External Catheter - Exam Constitutional: No acute distress, conversant, pleasant Eyes:Anicteric sclerae, moist conjunctiva, no lid-lag, PERRLA, ENMT: Oropharynx clear, no erythema, exudates Neck: Supple, FROM, no masses, or JVD, No carotid bruits, No thyromegaly Lungs: Clear to auscultation, Clear to percussion, Normal respiratory effort, no accessory muscle use Cardiovascular: Heart regular in rate and rhythm, No murmurs, gallops, or rubs, No peripheral edema Abdominal: Soft, Nontender, no guarding, rebound or rigidity, Normoactive bowel sounds, No hepatomegaly, No splenomegaly, No palpable mass Skin: Normal temperature, tone, texture, turgor, no induration, No subcutaneous nodules, No rash, lesions, No ulcers Extremities: No digital cyanosis, No clubbing, Pedal pulses intact and symmetrical, Radial pulses intact and symmetrical, No calf tenderness Psychiatric: Alert and oriented to person, place and time, appropriate affect, intact judgement Neuro: Muscles Strength 5/5 in all 4 extremities, Sensation to light touch grossly present throughout, Cranial nerves II-XII grossly intact, no focal sensory deficits - Labs CBC & Chem 7: 05/11/22 10:57 05/11/22 10:57 Labs: Abnormal Lab Results - Last 24 Hours (Table) 05/10/22 05/10/22 05/10/22 Range/Units 17:12 17:12 17:12 WBC 14.0 H (3.8-10.6) k/uL Plt Count (150-450) k/uL Neutrophils # 11.1 H (1.3-7.7) k/uL Monocytes # 1.2 H (0-1.0) k/uL Sodium 133 L (137-145) mmol/L BUN 24 H (7-17) mg/dL Glucose 118 H (74-99) mg/dL Calcium 7.9 L (8.4-10.2) mg/dL AST 110 H (14-36) U/L ALT 58 H (4-34) U/L Total Protein (6.3-8.2) g/dL Albumin (3.5-5.0) g/dL Urine Appearance Turbid H (Clear) Urine Protein 2+ H (Negative) Urine Blood Moderate H (Negative) Ur Leukocyte Esterase Large H (Negative) Urine RBC 34 H (0-5) /hpf Urine WBC >182 H (0-5) /hpf Urine WBC Clumps Many H (None) /hpf Urine Bacteria Many H (None) /hpf Urine Mucus Few H (None) /hpf 05/11/22 05/11/22 Range/Units 10:57 10:57 WBC 12.4 H (3.8-10.6) k/uL Plt Count 133 L (150-450) k/uL Neutrophils # 10.1 H (1.3-7.7) k/uL Monocytes # (0-1.0) k/uL Sodium 136 L (137-145) mmol/L BUN (7-17) mg/dL Glucose 153 H (74-99) mg/dL Calcium 7.8 L (8.4-10.2) mg/dL AST 58 H (14-36) U/L ALT 48 H (4-34) U/L Total Protein 5.7 L (6.3-8.2) g/dL Albumin 3.2 L (3.5-5.0) g/dL Urine Appearance (Clear) Urine Protein (Negative) Urine Blood (Negative) Ur Leukocyte Esterase (Negative) Urine RBC (0-5) /hpf Urine WBC (0-5) /hpf Urine WBC Clumps (None) /hpf Urine Bacteria (None) /hpf Urine Mucus (None) /hpf Microbiology - Last 24 Hours (Table) 05/10/22 17:12 Urine Culture - Preliminary Urine,Clean Catch Assessment and Plan Plan: Sepsis secondary to UTI -Continue ceftriaxone -Follow up blood and urine cultures -Gentle IV hydration Chronic conditions: Dementia, hypertension -Continue with home meds Abnormal LFTs -Likely due to ongoing sepsis -Improved DVT prophylaxis -Heparin subcu CODE STATUS: Full Code Discussed with: Patient Anticipated discharge date: 1-[address]: Home
[2022-05-11] MEDS: OLANZapine 5 MG TAB PO SCH (21:10)
[2022-05-11] MEDS: MIRTAZAPINE 15 MG TAB PO SCH (21:10)
[2022-05-11] MEDS: ATORVASTATIN 20 MG TAB PO SCH (21:11)
[2022-05-12] MEDS: SODIUM CHLORIDE 0.9% 1,000 ML IV SCH ×3 (00:08→17:19)
[2022-05-12] MEDS: HEPARIN SODIUM,PORCINE/PF 5,000 UNIT/0.5 ML SYRINGE SQ SCH ×4 (00:08→22:04)
[2022-05-12] MEDS: ASPIRIN 81 MG PO SCH (09:43)
--- NOTE | 2022-05-12 17:31 | P.PN ---
Progress Note - Text Progress Note Date: 05/12/22 Hospital course: Admitted with sepsis secondary to UTI. Underlying dementia, hypertension. IV ceftriaxone, IV fluids. May 12: I assumed care of the patient today. Laying in bed. Doesn't talk much. Has a congested cough. Tired.. IV ceftriaxone. Awake. Chest x-ray shows coarsening of the right base. Right basilar crackles. Active Medications Acetaminophen (Acetaminophen Tab 325 Mg Tab) 650 mg PO Q6HR PRN PRN Reason: Mild Pain or Fever > 100.5 Aspirin (Aspirin 81 Mg) 81 mg PO DAILY [facility] Last Admin: 05/12/22 09:43 Dose: 81 mg Atorvastatin Calcium (Atorvastatin 20 Mg Tab) 20 mg PO [facility] Last Admin: 05/11/22 21:11 Dose: 20 mg Heparin Sodium (Porcine) (Heparin Sodium,Porcine/Pf 5,000 Unit/0.5 Ml Syringe) 5,000 unit SQ Q8HR [facility] Last Admin: 05/12/22 17:18 Dose: 5,000 unit Ceftriaxone Sodium 1 gm/ (Sodium Chloride) 50 mls @ 100 mls/hr IVPB Q24H [facility]; Protocol Last Admin: 05/11/22 20:42 Dose: 100 mls/hr Sodium Chloride (Saline 0.9%) 1,000 mls @ 130 mls/hr IV .Q7H42M [facility] Last Admin: 05/12/22 17:19 Dose: 130 mls/hr Melatonin (Melatonin 5 Mg Tablet) 5 mg PO [facility] Last Admin: 05/11/22 21:11 Dose: 5 mg Mirtazapine (Mirtazapine 15 Mg Tab) 15 mg PO [facility] Last Admin: 05/11/22 21:10 Dose: 15 mg Olanzapine (Olanzapine 5 Mg Tab) 5 mg PO [facility] Last Admin: 05/11/22 21:10 Dose: 5 mg On examination: VITAL SIGNS: [97.9, 70, 16, 129 since 35, 92% room air] GENERAL APPEARANCE: Laying in bed awake, tired and doesn't talk much HEENT: Normal external appearance of nose and ear. Oral cavity normal EYES: Pupils equal. Conjunctiva normal. NECK: JVD not raised. Mass not palpable. RESPIRATORY: Respiratory effort increased Lungs coarse crackles on the right base.. CARDIOVASCULAR: First and second sounds normal. No edema. ABDOMEN: Soft. Liver and spleen not palpable. No tenderness. No mass palpable. PSYCHIATRY: May answer occasional question INVESTIGATIONS, reviewed in the clinical context: White count 12.4 hemoglobin 11.7 platelets 133 potassium 3.5 creatinine 0.73 Influenza type A/diabetes, RSV/: 19: Not detected Assessment and plan: -Right basilar pneumonia. Suspect gram-negative organism. 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 IV ceftriaxone. Up in a chair.
[2022-05-12] MEDS: ATORVASTATIN 20 MG TAB PO SCH (22:03)
[2022-05-12] MEDS: MELATONIN 5 MG TABLET PO SCH (22:03)
[2022-05-12] MEDS: OLANZapine 5 MG TAB PO SCH (22:04)
[2022-05-12] MEDS: MIRTAZAPINE 15 MG TAB PO SCH (22:04)
[2022-05-13] MEDS: SODIUM CHLORIDE 0.9% 1,000 ML IV SCH (05:07)
[2022-05-13 05:19] VITALS: BP 151/70; PULSE 69; RESP 16; TEMP 97.9
[2022-05-13] MEDS: HEPARIN SODIUM,PORCINE/PF 5,000 UNIT/0.5 ML SYRINGE SQ SCH ×2 (08:33→16:14)
[2022-05-13] MEDS: ASPIRIN 81 MG PO SCH (08:33)
--- NOTE | 2022-05-13 14:22 | P.DS ---
Providers Date of admission: 05/10/22 19:38 Expected date of discharge: 05/13/22 Attending physician: Gopal Saba Primary care physician: TONEY Sorenson Hospital Course: Hospital course: Admitted with sepsis secondary to UTI. Underlying dementia, hypertension. IV ceftriaxone, IV fluids. May 12: I assumed care of the patient today. Laying in bed. Doesn't talk much. Has a congested cough. Tired.. IV ceftriaxone. Awake. Chest x-ray shows coarsening of the right base. Right basilar crackles. May 13: Sitting up in a chair. Comfortable. Breathing well. Eating fair. Per caseworker intake patient will be not be accepted back at her assisted living. She will go to rehab. Paperwork carried out. Discussed with nurse. Discussion and discharge planning more than 35 minutes On examination: VITAL SIGNS: 97.9, 69, 16, 151/70, 93% room air GENERAL APPEARANCE: Up in a chair, comfortable HEENT: Normal external appearance of nose and ear. Oral cavity normal EYES: Pupils equal. Conjunctiva normal. NECK: JVD not raised. Mass not palpable. RESPIRATORY: Respiratory effort normal Lungs clear CARDIOVASCULAR: First and second sounds normal. No edema. ABDOMEN: Soft. Liver and spleen not palpable. No tenderness. No mass palpable. PSYCHIATRY: May answer occasional question INVESTIGATIONS, reviewed in the clinical context: White count 12.4 hemoglobin 11.7 platelets 133 potassium 3.5 creatinine 0.73 Influenza type A/diabetes, RSV/: 19: Not detected Assessment and plan: -Right basilar pneumonia. Suspect gram-negative organism. IV ceftriaxone. Changed to Ceftin. -Severe cognitive impairment from late onset Alzheimer's dementia -Hyperlipidemia Lipitor -Chronic insomnia from medical conditions Remeron 50 mg daily at bedtime -Depression BuSpar 10 mg 3 times a day Zyprexa 5 mg daily at bedtime -Chronic pulmonary fibrosis -Acute UTI with cystitis, from Klebsiella pneumoniae Complete course with Ceftin -Guardian:Ashlyn Disposition: [facility]hab [facility] Plan - Discharge Summary New Discharge Prescriptions: New Cephalexin [Keflex] 250 mg PO Q8HR #6 capsule Continue Ferrous Sulfate [Iron (65 MG Elemental)] 325 mg PO DAILY Aspirin [Adult Low Dose Aspirin EC] 81 mg PO DAILY Magnesium Hydroxide [Milk of Magnesia] 1,200 mg PO DAILY PRN PRN Reason: Constipation OLANZapine 5 mg PO HS Mirtazapine [Remeron] 15 mg PO HS Atorvastatin [Lipitor] 20 mg PO HS guaiFENesin [guaiFENesin Oral Solution] 400 mg PO Q6H PRN PRN Reason: cough/congestion Nystatin 100,000 Unit/gm Powd [Mycostatin Powder] 1 applic TOPICAL BID PRN PRN Reason: yeast infection ALPRAZolam [Xanax] 0.25 mg PO Q8H PRN PRN Reason: Anxiety Acetaminophen Tab [Tylenol] 500 mg PO Q6H PRN PRN Reason: Pain Lactose-Reduced Food [Boost] 1 can PO W/LUNCH Discontinued busPIRone HCL 10 mg PO TID Escitalopram [Lexapro] 20 mg PO DAILY diphenhydrAMINE & Zinc Cream [Benadryl Cream] 1 applic TOPICAL TID PRN PRN Reason: Itching Docusate [Colace] 200 mg PO HS PRN PRN Reason: Constipation,hold for diarrhea Discharge Medication List Aspirin [Adult Low Dose Aspirin EC] 81 mg PO DAILY 12/21/18 [History] Ferrous Sulfate [Iron (65 MG Elemental)] 325 mg PO DAILY 12/21/18 [History] Magnesium Hydroxide [Milk of Magnesia] 1,200 mg PO DAILY PRN 12/21/18 [History] ALPRAZolam [Xanax] 0.25 mg PO Q8H PRN 05/10/22 [History] Acetaminophen Tab [Tylenol] 500 mg PO Q6H PRN 05/10/22 [History] Atorvastatin [Lipitor] 20 mg PO HS 05/10/22 [History] Lactose-Reduced Food [Boost] 1 can PO W/LUNCH 05/10/22 [History] Mirtazapine [Remeron] 15 mg PO HS 05/10/22 [History] Nystatin 100,000 Unit/gm Powd [Mycostatin Powder] 1 applic TOPICAL BID PRN [History] OLANZapine 5 mg PO HS 05/10/22 [History] guaiFENesin [guaiFENesin Oral Solution] 400 mg PO Q6H PRN 05/10/22 [History] Cephalexin [Keflex] 250 mg PO Q8HR #6 capsule 05/13/22 [Rx] Follow up Appointment(s)/Referral(s): Frank Ramirez, NPC [Primary Care Provider] - 1-2 days Activity/Diet/Wound Care/Special Instructions: when pt is d/c call [facility] to see if staff can transport the pt if staff can not transport the pt rayray Izaguirre consents to pay for a w/c van to transport pt back to [address]
== END 2022-05-13 17:55 | DRG 871 ==
LOC: EC 16:10 → EEVIPCON 16:10 → 5NMEDONC 19:38
PROVIDERS: ADMIT Hospitalist; ATTEND Hospitalist
DX: A41.9 Sepsis, unspecified organism (principal); J15.6 Pneumonia due to other Gram-negative bacteria; N30.00 Acute cystitis without hematuria; J84.10 Pulmonary fibrosis, unspecified; I10 Essential (primary) hypertension; F32.A Depression, unspecified; E78.5 Hyperlipidemia, unspecified; F51.04 Psychophysiologic insomnia; B96.1 Klebsiella pneumoniae [K. pneumoniae] as the cause of diseases classified elsewhere; G30.1 Alzheimer's disease with late onset; F02.80 Dementia in other diseases classified elsewhere, unspecified severity, without behavioral disturbance, psychotic disturbance, mood disturbance, and anxiety; R79.89 Other specified abnormal findings of blood chemistry; Z20.822 Contact with and (suspected) exposure to COVID-19; Z79.82 Long term (current) use of aspirin; Z79.899 Other long term (current) drug therapy
CPT/HCPCS: 36415; 51701; 71045; 80053; 81001; 83605; 84484; 85025; 85610; 85730; 87040; 87077; 87086; 87186; 87636; 93005; 96361; 96365; 96372; 99285

== ENCOUNTER 2023-02-22 17:52 | Inpatient (IN) | payer MEDICARE ==
[2023-02-22] MEDS ORDERED: SODIUM CHLORIDE 0.9% 500 ML 500 ML IV ONE (18:48)
[2023-02-22] MEDS ORDERED: MORPHINE SULFATE 2 MG/ML SYRINGE IVP STA (18:49)
[2023-02-22 19:00] LABS: Basophils # (A) 0.1 k/uL (0-0.2); Basophils % (A) 0 %; Eosinophils # (A) 0.3 k/uL (0-0.7); Eosinophils % (A) 2 %; HCT 40.9 % (34.0-46.0); HGB 13.2 gm/dL (11.4-16.0); Lymphocytes # (A) 1.4 k/uL (1.0-4.8); Lymphocytes % (A) 11 %; MCH 30.4 pg (25.0-35.0); MCHC 32.2 g/dL (31.0-37.0); MCV 94.2 fL (80.0-100.0); Monocytes # (A) 0.7 k/uL (0-1.0); Monocytes % (A) 6 %; Neutrophils # (A) 10.3 k/uL (1.3-7.7); Neutrophils % (A) 80 %; Platelet Count 190 k/uL (150-450); RBC 4.34 m/uL (3.80-5.40); WBC 12.8 k/uL (3.8-10.6)
[2023-02-22 19:15] LABS: ALT 22 U/L (4-34); AST 30 U/L (14-36); African American GFR (CKD) >90 (>60 ml/min/1.73 sqM); Albumin 4.3 g/dL (3.5-5.0); Alkaline Phosphatase 86 U/L (38-126); Anion Gap 8 mmol/L; Blood Urea Nitrogen 18 mg/dL (7-17); Calcium 8.7 mg/dL (8.4-10.2); Carbon Dioxide 28 mmol/L (22-30); Chloride 101 mmol/L (98-107); Glucose 103 mg/dL (74-99); Non-African American GFR(CKD) 82 (>60 ml/min/1.73 sqM); Potassium 4.6 mmol/L (3.5-5.1); Sodium 137 mmol/L (137-145); Total Bilirubin 0.4 mg/dL (0.2-1.3); Total Protein 7.5 g/dL (6.3-8.2)
[2023-02-22 19:16] LABS: Partial Thromboplastin Time 22.6 sec (22.0-30.0); Prothrombin Time 10.5 sec (9.0-12.0)
--- NOTE | 2023-02-22 20:06 | CT ---
EXAMINATION TYPE: CT brain cspine wo con CT DLP: 1398.5 mGycm, Automated exposure control for dose reduction was used. DATE OF EXAM: 02/22/2023 7:41 PM COMPARISON: 01/07/2018 CLINICAL INDICATION:Female, 87 years old with history of fall, pain; pain after fall TECHNIQUE: Brain: Multiple axial CT images of the brain were obtained without IV contrast. Cspine: Axial CT images from the skull base to the inferior aspect of T2 we obtained without intraven ous contrast. Coronal and sagittal reformatted images were also reviewed. FINDINGS: Brain: Extra-axial spaces: No abnormal extra-axial fluid collections. Ventricular system: Dilatation in proportion to cerebral atrophy. Cerebral parenchyma: Cerebral atrophy. No acute intraparenchymal hemorrhage or mass effect. The bronson -white junction is well differentiated. Scattered hypoattenuating areas are seen within the white mat ter. Cerebellum: Unremarkable. Mass effect: No evidence of midline shift. Intracranial vasculature: Atherosclerotic calcifications of the intracranial vessels. Soft tissues: Normal. Calvarium/osseous structures: No depressed skull fracture. Paranasal sinuses and mastoid air cells: Clear. Visualized orbits: Orbital contents are intact. Cervical spine: Fracture: None. Osseous structures: Multilevel degenerative disc disease changes with endplate spurring and disc oste ophyte complex's. Vertebral alignment: Within normal limits. Spinal canal/Neural Foramina: Disc osteophyte complexes at C5-C6 and C6-C7 with at least mild spinal canal stenosis. Facet joint uncovertebral joint arthropathy scattered throughout the cervical spine w ith varying degrees of neural foraminal stenosis. Worse at C4-C7 Neck soft tissues: Prevertebral soft tissues are within normal limits. Other: The airway is patent. The lung apices are clear. IMPRESSION: 1. No acute intracranial process. 2. Nonspecific white matter changes, likely secondary to chronic small vessel ischemic disease. 3. No evidence of cervical spine fracture. 4. Moderate multilevel degenerative disc disease.
--- NOTE | 2023-02-22 20:09 | XR ---
EXAMINATION TYPE: XR Hip RT and AP Pelvis, XR femur RT, XR knee limited RT DATE OF EXAM: 02/22/2023 7:51 PM INDICATION: Patient age:Female; 87 years old; Reason for study: fall, pain; COMPARISON: None. TECHNIQUE: The right hip was examined in the frontal and lateral projections and a AP pelvis. The right femur was evaluated in frontal and lateral views. The right knee was evaluated in frontal lateral views. FINDINGS: Acute comminuted fracture of the proximal right femur at the base of the neck. No additiona l fractures definitively visualized. Degeneration changes of the knee with osteophyte formation of th e tibia and patella. Enthesophyte at the quadriceps insertion on the patella. IMPRESSION: 1. Acute comminuted right proximal femur fracture at the base of the femoral neck with varus deformi ty. 2. The remainder of the osseous structures appear intact.
--- NOTE | 2023-02-22 20:10 | XR ---
EXAMINATION TYPE: XR chest 1V DATE OF EXAM: 02/22/2023 7:51 PM COMPARISON: Chest radiographs from 05/10/2022 TECHNIQUE: XR chest 1V Frontal view of the chest. CLINICAL INDICATION:Female, 87 years old with history of fall, pain; FINDINGS: Lungs/Pleura: There is no evidence of pleural effusion, focal consolidation, or pneumothorax. Pulmonary vascularity: Unremarkable. Heart/mediastinum: Cardiomediastinal silhouette is enlarged and stable. Musculoskeletal: Degenerative changes of the shoulder joints. Midline sternotomy wires are noted. IMPRESSION: No acute cardiopulmonary disease/process.
[2023-02-22] MEDS ORDERED: ONDANSETRON 4 MG/2 ML VIAL IVP PRN (20:37)
[2023-02-22] MEDS ORDERED: NALOXONE 0.4 MG/ML 1 ML VIAL IV PRN (20:37)
--- NOTE | 2023-02-22 20:37 | ED ---
General Adult HPI - General Chief complaint: Fall Stated complaint: Fall, hip pain Time Seen by Provider: 02/22/23 18:28 Source: EMS, RN notes reviewed, old records reviewed Mode of arrival: EMS Limitations: altered mental status - History of Present Illness Initial comments: Patient is an 87-year-old female presents from nursing facility over concern for fall. Patient is a history of dementia, is alert and oriented times one. Patient has a guardian service. She is currently at her mental baseline per EMS. Is supposed to ambulate with a walker however fell earlier today when not using her walker. Complaining of right hip pain. Presents for further evaluation at this time. Patient is a poor historian but does have pain on palpation over the right hip with shortening of the right lower extremity. His to be neurovascularly intact. Also some mild pain over the right knee. Patient is not on blood thinners. Patient presents for evaluation after falling concern for right hip injury. - Related Data Home Medications Medication Instructions Recorded Confirmed Aspirin [Adult Low Dose Aspirin EC] 81 mg PO DAILY 12/21/18 05/10/22 Ferrous Sulfate [Iron (65 MG 325 mg PO DAILY 12/21/18 05/10/22 Elemental)] Magnesium Hydroxide [Milk of 1,200 mg PO DAILY PRN 12/21/18 05/10/22 Magnesia] ALPRAZolam [Xanax] 0.25 mg PO Q8H PRN 05/10/22 05/10/22 Acetaminophen Tab [Tylenol] 500 mg PO Q6H PRN 05/10/22 05/10/22 Atorvastatin [Lipitor] 20 mg PO HS 05/10/22 05/10/22 Lactose-Reduced Food [Boost] 1 can PO W/LUNCH 05/10/22 05/10/22 Mirtazapine [Remeron] 15 mg PO HS 05/10/22 05/10/22 Nystatin 100,000 Unit/gm Powd 1 applic TOPICAL BID PRN 05/10/22 05/10/22 [Mycostatin Powder] OLANZapine 5 mg PO HS 05/10/22 05/10/22 guaiFENesin [guaiFENesin Oral 400 mg PO Q6H PRN 05/10/22 05/10/22 Solution] Previous Rx's Medication Instructions Recorded cefUROXime axetiL [Ceftin] 500 mg PO BID #4 tab 05/13/22 Allergies Allergy/AdvReac Type Severity Reaction Status Date / Time No Known Allergies Allergy Verified 05/10/22 21:45 Review of Systems ROS Statement: Those systems with pertinent positive or pertinent negative responses have been documented in the HPI. ROS Other: All systems not noted in ROS Statement are negative. Past Medical History Past Medical History: Chest Pain / Angina, Dementia, Hypertension Additional Past Medical History / Comment(s): alzheimers dementia, pulmonary fibrosis and angina anxiety, orthostatic hypotension History of Any Multi-Drug Resistant Organisms: None Reported Past Surgical History: Appendectomy Past Psychological History: Anxiety, Depression Smoking Status: Never smoker Past Alcohol Use History: Unable to Obtain Past Drug Use History: Unable to Obtain - Past Family History Father Additional Family Medical History / Comment(s): Unable to obtain due to mental status General Exam - General Exam Comments Initial Comments: General: Appears in mild to moderate distress secondary to right hip pain. HEAD: Normal with no signs of head trauma. EYES: PERRLA, EOMI, conjunctiva normal, no discharge. Pupils are 3 mm and equal bilaterally. ENT: Hearing grossly intact, normal oropharynx. RESPIRATORY: Clear breath sounds bilaterally. No wheezes, rales, or rhonchi. C/V: Regular rate and rhythm. S1 and S2 auscultated, no edema, peripheral pulses 2+ and intact throughout ABD: Abd is soft, nontender, nondistended EXT: Obvious shortening of the right lower extremity with tenderness over the right occiput femur. Concern for right hip fracture. Patient is not moving this extremity. Also some mild tenderness over the right knee. No other ob vious injuries. Pelvis appears stable. No midline cervical, thoracic, lumbar spine tenderness to palpation. SKIN: No rashes or lesions observed on exposed skin. NEURO: Alert and oriented x 1. No obvious deficits other than weakness in the right lower extremity likely secondary to fracture. Limitations: altered mental status Course Vital Signs 02/22/23 02/22/23 17:55 20:47 Temperature 97.2 F L Pulse Rate 72 97 Respiratory 18 22 Rate Blood Pressure 193/87 162/75 O2 Sat by Pulse 96 95 Oximetry Medical Decision Making - Medical Decision Making Was pt. sent in by a medical professional or institution (, PA, TONG SETTER, urgent care, hospital, or snf...) When possible be specific @ -No Did you speak to anyone other than the patient for history (EMS, parent, family, police, friend...)? What history was obtained from this source @ -Nursing staff spoke with guardian service and received consent for treatment. Did you review nursing and triage notes (agree or disagree)? Why? @ -I reviewed and agree with nursing and triage notes Were old charts reviewed (outside hosp., previous admission, EMS record, old EKG, old radiological studies, urgent care reports/EKG's, snf records)? Report findings @ -No old charts were reviewed Differential Diagnosis (chest pain, altered mental status, abdominal pain women, abdominal pain men, vaginal bleeding, weakness, fever, dyspnea, syncope, headache, dizziness, GI bleed, back pain, seizure, CVA, palpatations, mental h ealth, musculoskeletal)? @ -Differential Musculoskeletal Muscular strain, contusion, ligament sprain, fracture, arthritis, septic arthritis, bursitis, cellulitis, muscle spasm, nerve compression, DVT, arterial occlusion, herpes zoster, electrolyte abnormality, tumor.... This is not meant to be in all inclusive list EKG interpreted by me (3pts min.). @ -As above X-rays interpreted by me (1pt min.). @ -Chest x-ray shows no obvious acute cardiopulmonary process, right knee x-ray shows no obvious acute injury. Right hip and femur and pelvis x-ray reveals an acute comminuted right proximal femur fracture with some deformity. CT interpreted by me (1pt min.). @ -CT brain and C-spine reveals no obvious acute intracranial injury or cervical spine injury. U/S interpreted by me (1pt. min.). @ -None done What testing was considered but not performed or refused? (CT, X-rays, U/S, labs)? Why? @ -None What meds were considered but not given or refused? Why? @ -None Did you discuss the management of the patient with other professionals (professionals i.e. , PA, TONG SETTER, lab, RT, psych nurse, social service worker, personnel quality assurance auditor, teacher, account officer, case worker)? Give summary @ -Spoke with TORIE Leonard of worse over accepted the admission. Spoke with Dr. Louis of medicine who accepted consult. Was smoking cessation discussed for >3mins.? @ -No Was critical care preformed (if so, how long)? @ -No Were there social determinants of health that impacted care today? How? (Homelessness, low income, unemployed, alcoholism, drug addiction, transportation, low edu. Level, literacy, decrease access to med. care, intermediate, rehab)? @ -No Was there de-escalation of care discussed even if they declined (Discuss DNR or withdrawal of care, Hospice)? DNR status @ -No What co-morbidities impacted this encounter? (DM, HTN, Smoking, COPD, CAD, Cancer, CVA, ARF, Chemo, Hep., AIDS, mental health diagnosis, sleep apnea, morbid obesity)? @ -Dementia Was patient admitted / discharged? Hospital course, mention meds given and route, prescriptions, significant lab abnormalities, going to OR and other pertinent info. @ -Based on the patient's presentation and physical exam, I'm concerned for bony traumatic injury from a witnessed mechanical fall at her facility. Primary concern is the right hip. We will obtain right lower extremity plain films, as well as CT brain and C-spine as well as basic labs. Consent was obtained from the guardian service for the patient's care. Patient was administered IV analgesic medication morphine, as well as IV fluids. She is at her baseline mental status which is alert and oriented times one. Patient's labs are remarkable for mild leukocytosis of 12. Urine shows evidence of possible UTI and she was started on antibiotics. Remainder of the labs are within acceptable limits. Imaging findings a right proximal comminuted femur fracture. After the patient that she'll be admitted. I spoke with the admitting team, TORIE Crespo over accepted the admission. I spoke with the medical consulting service, Dr. Louis who accepted to consult. Patient remains neurovascularly intact. We will admit for surgical repair. Undiagnosed new problem with uncertain prognosis? @ -No Drug Therapy requiring intensive monitoring for toxicity (Heparin, Nitro, Insulin, Cardizem)? @ -No Were any procedures done? @ -No Diagnosis/symptom? @ -Mechanical fall, right comminuted proximal femur fracture, UTI Acute, or Chronic, or Acute on Chronic? @ -Acute Uncomplicated (without systemic symptoms) or Complicated (systemic symptoms)? @ -Complicated Side effects of treatment? @ -No Exacerbation, Progression, or Severe Exacerbation? @ -No Poses a threat to life or bodily function? How? (Chest pain, [place], [place], pneumonia, PE, COPD, DKA, ARF, appy, cholecystitis, CVA, Diverticulitis, Homicidal, Suicidal, threat to staff... and all critical care pts) @ -yes Diagnosis/symptom? @ -Dementia Acute, or Chronic, or Acute on Chronic? @ -Chronic Uncomplicated (without systemic symptoms) or Complicated (systemic symptoms)? @ -Uncomplicated Side effects of treatment? @ -none Exacerbation, Progression, or Severe Exacerbation] @ -no Poses a threat to life or bodily function? @ -no - Lab Data Result diagrams: 02/22/23 18:52 02/22/23 18:52 Lab Results 02/22/23 02/22/23 02/22/23 Range/Units 18:52 18:52 18:52 WBC 12.8 H (3.8-10.6) k/uL RBC 4.34 (3.80-5.40) m/uL Hgb 13.2 (11.4-16.0) gm/dL Hct 40.9 (34.0-46.0) % MCV 94.2 (80.0-100.0) fL MCH 30.4 (25.0-35.0) pg MCHC 32.2 (31.0-37.0) g/dL RDW 13.0 (11.5-15.5) % Plt Count 190 (150-450) k/uL MPV 8.0 Neutrophils % 80 % Lymphocytes % 11 % Monocytes % 6 % Eosinophils % 2 % Basophils % 0 % Neutrophils # 10.3 H (1.3-7.7) k/uL Lymphocytes # 1.4 (1.0-4.8) k/uL Monocytes # 0.7 (0-1.0) k/uL Eosinophils # 0.3 (0-0.7) k/uL Basophils # 0.1 (0-0.2) k/uL PT 10.5 (9.0-12.0) sec INR 1.0 (<1.2) APTT 22.6 (22.0-30.0) sec Sodium 137 (137-145) mmol/L Potassium 4.6 (3.5-5.1) mmol/L Chloride 101 (98-107) mmol/L Carbon Dioxide 28 (22-30) mmol/L Anion Gap 8 mmol/L BUN 18 H (7-17) mg/dL Creatinine 0.63 (0.52-1.04) mg/dL Est GFR (CKD-EPI)AfAm >90 (>60 ml/min/1.73 sqM) Est GFR (CKD-EPI)NonAf 82 (>60 ml/min/1.73 sqM) Glucose 103 H (74-99) mg/dL Calcium 8.7 (8.4-10.2) mg/dL Total Bilirubin 0.4 (0.2-1.3) mg/dL AST 30 (14-36) U/L ALT 22 (4-34) U/L Alkaline Phosphatase 86 (38-126) U/L Total Protein 7.5 (6.3-8.2) g/dL Albumin 4.3 (3.5-5.0) g/dL Disposition Clinical Impression: Fall, Fracture, intertrochanteric, right femur, UTI (urinary tract infection) Disposition: ADMITTED IP TO THIS HOSP Condition: Stable Time of Disposition: 20:25
[2023-02-22] MEDS: MORPHINE SULFATE 4 MG/ML SYRINGE IV PRN (20:48)
[2023-02-22] MEDS: SODIUM CHLORIDE 0.9% 1,000 ML IV SCH (20:50)
[2023-02-22 21:32] LABS: Appearance,Urine Cloudy (Clear); Bacteria,Urine Moderate /hpf; Bilirubin,Urine Negative (Negative); Blood,Urine Negative (Negative); Color,Urine Yellow; Glucose,Urine (UA) Negative (Negative); Hyaline Casts,Urine 1 /lpf (0-2); Ketones,Urine Negative (Negative); Leukocyte Esterase,Urine Large (Negative); Mucus,Urine Few /hpf; Nitrite,Urine Negative (Negative); Protein,Urine Trace (Negative); RBC,Urine 5 /hpf (0-5); Specific Gravity,Urine 1.019 (1.001-1.035); Squamous Epithelial Cell,Urine 4 /hpf (0-4); Urobilinogen,Urine <2.0 mg/dL (<2.0); WBC,Urine 24 /hpf (0-5)
--- NOTE | 2023-02-22 21:47 | CT ---
EXAMINATION TYPE: CT hip RT wo con CT DLP: 851.7 mGycm, Automated exposure control for dose reduction was used. DATE OF EXAM: 02/22/2023 9:38 PM COMPARISON: Extremity radiograph same day. CLINICAL INDICATION:Female, 87 years old with history of recent fall and right femur fracture; PHH, r ecent fall and right femur fracture TECHNIQUE: Axial images were obtained of the right hip . Additional coronal and sagittal reformatted images and soft tissue and bone window were obtained for review. 3-D reconstruction was created on a separate workstation. Contrast used: None Oral contrast used: None FINDINGS: Comminuted right proximal femur basicervical fracture with varus deformity. No intra-articu lar extension. No additional fractures identified. Atherosclerosis of the arterial vasculature. Suspe cted degenerating fibroid change. IMPRESSION: Comminuted right proximal femur fracture with varus deformity.
[2023-02-22] MEDS: ACETAMINOPHEN TAB 325 MG TAB PO PRN (22:07)
--- NOTE | 2023-02-23 03:08 | P.CONS ---
History of Present Illness - Reason for Consult Consult date: 02/22/23 medical eval - Chief Complaint [facility] at the [facility] - History of Present Illness 87-year-old female with dementia and hypertension Patient is a [facility] resident she has very advanced dementia she is alert during of only she provides no meaningful history at this time. Per ED notes patient has sustained a fall at the [facility] no mention of head injury no mention of seizure-like activity no mention of syncope or passing out no reports of nausea vomiting chest pain trouble breathing or GI bleed. Upon further testing in the ED she was found to have right femur fracture she's admitted to the orthopedic team with consultation to medicine for preop clearance Patient has a guardian which is not accessible at this time Review of Systems ROS unobtainable: due to mental status Past Medical History Past Medical History: Chest Pain / Angina, Dementia, Hypertension Additional Past Medical History / Comment(s): alzheimers dementia, pulmonary fibrosis and angina anxiety, orthostatic hypotension History of Any Multi-Drug Resistant Organisms: None Reported Past Surgical History: Appendectomy Past Psychological History: Anxiety, Depression Smoking Status: Never smoker Past Alcohol Use History: Unable to Obtain Past Drug Use History: Unable to Obtain - Past Family History Father Additional Family Medical History / Comment(s): Unable to obtain due to mental status Medications and Allergies Home Medications Medication Instructions Recorded Confirmed Type Aspirin [Adult Low Dose Aspirin EC] 81 mg PO DAILY 12/21/18 02/22/23 History Magnesium Hydroxide [Milk of 1,200 mg PO DAILY PRN 12/21/18 02/22/23 History Magnesia] ALPRAZolam [Xanax] 0.25 mg PO Q8H PRN 05/10/22 02/22/23 History Atorvastatin [Lipitor] 20 mg PO HS 05/10/22 02/22/23 History Lactose-Reduced Food [Boost] 237 ml PO DAILY 05/10/22 02/22/23 History Nystatin 100,000 Unit/gm Powd 1 applic TOPICAL BID PRN 05/10/22 02/22/23 History [Mycostatin Powder] OLANZapine 5 mg PO HS 05/10/22 02/22/23 History guaiFENesin [guaiFENesin Oral 400 mg PO Q6H PRN 05/10/22 02/22/23 History Solution] Acetaminophen [Tylenol Arthritis] 650 mg PO BID 02/22/23 02/22/23 History Benzonatate [Tessalon Perle] 200 mg PO TID PRN 02/22/23 02/22/23 History Divalproex [Depakote] 250 mg PO DAILY 02/22/23 02/22/23 History Erythromycin Ophth Oint [Romycin 0.5 inch LEFT EYE BID 02/22/23 02/22/23 History Ophth Oint] Escitalopram [Lexapro] 20 mg PO DAILY 02/22/23 02/22/23 History Lactulose 10 gm PO DAILY 02/22/23 02/22/23 History Mirtazapine 30 mg PO HS 02/22/23 02/22/23 History Sennosides/Docusate Sodium [Senna 1 cap PO BID 02/22/23 02/22/23 History Plus 8.6-50 mg Softgel] diphenhydrAMINE & Zinc Cream 1 applic TOPICAL TID PRN 02/22/23 02/22/23 History [Benadryl Cream] Allergies Allergy/AdvReac Type Severity Reaction Status Date / Time No Known Allergies Allergy Verified 02/22/23 21:56 Physical Exam Vitals: Vital Signs Temp Pulse Resp BP Pulse Ox 02/22/23 20:47 97 22 162/75 95 02/22/23 17:55 97.2 F L 72 18 193/87 96 Intake and Output 02/22/23 02/22/23 02/22/23 06:59 14:59 22:59 Other: Weight 81.647 kg Constitutional: No acute distress, alert does not talk only makes noises Eyes: Anicteric sclerae, moist conjunctiva, Pupils equal round reactive to light ENMT: NC/AT Oropharynx clear, no erythema, or exudates Neck: Supple, no masses, or JVD No carotid bruits No thyromegaly Lungs: Clear to auscultation Clear to percussion Normal respiratory effort, no accessory muscle use Cardiovascular: Heart regular in rate and rhythm, Systolic murmurs, no gallops, or rubs No peripheral edema Abdominal: Soft Nontender, no guarding, rebound or rigidity Abdomen moving with respiration Normoactive bowel sounds No hepatomegaly, No splenomegaly No palpable mass No abdominal wall hernia noted Skin: Normal temperature, tone, texture, turgor Extremities: No digital cyanosis No clubbing Pedal pulses intact and symmetrical Radial pulses intact and symmetrical No calf tenderness Psychiatric: Awake alert, otherwise disoriented patient was only making noises and was not able to answer any of my questions she is oriented 0 at this point Neuro she's unable to follow commands properly but she is moving bilateral upper extremities and left lower extremities unable to perform full neuro exam Lymphatics: no palpable cervical or supraclavicular lymph nodes Results CBC & Chem 7: 02/22/23 18:52 02/22/23 18:52 Labs: Abnormal Lab Results - Last 24 Hours (Table) 02/22/23 02/22/23 Range/Units 18:52 18:52 WBC 12.8 H (3.8-10.6) k/uL Neutrophils # 10.3 H (1.3-7.7) k/uL BUN 18 H (7-17) mg/dL Glucose 103 H (74-99) mg/dL Assessment and Plan Assessment: Acute right femoral fracture Accidental fall Management per orthopedic team for pain control and DVT prophylaxis Advanced dementia Fall precautions UTI Follow-up cultures Rocephin 1 g daily IV piggyback Tylenol for fever Mood disorder Continue with Lexapro, divided proximal Blood work showed hemoglobin of 15.2 unremarkable white count of 12.8 seconds elevated most likely reactive to acute fracture Renal function are unremarkable with sodium 137 potassium 4.6, BUN 18 and creatinine 0.63 Patient condition should be discussed with her guardian for further history information to properly evaluate her. Preop medical clearance Check EKG Labs reviewed Check past medical history and recent medical history with guardian Due to prophylaxis heparin subcu 3 times a day Physician full code
[2023-02-23 06:54] LABS: Basophils % (A) 0 %; Eosinophils # (A) 0.1 k/uL (0-0.7); Eosinophils % (A) 1 %; HCT 35.1 % (34.0-46.0); HGB 11.4 gm/dL (11.4-16.0); Lymphocytes # (A) 1.2 k/uL (1.0-4.8); Lymphocytes % (A) 11 %; MCH 30.7 pg (25.0-35.0); MCHC 32.5 g/dL (31.0-37.0); MCV 94.5 fL (80.0-100.0); Mean Platelet Volume 8.8; Monocytes # (A) 0.8 k/uL (0-1.0); Monocytes % (A) 8 %; Neutrophils # (A) 8.5 k/uL (1.3-7.7); Neutrophils % (A) 79 %; Platelet Count 136 k/uL (150-450); RBC 3.72 m/uL (3.80-5.40); RDW 13.1 % (11.5-15.5); WBC 10.8 k/uL (3.8-10.6)
[2023-02-23] MEDS: ESCITALOPRAM 20 MG TAB PO SCH (09:41)
[2023-02-23] MEDS: DIVALPROEX 250 MG TABLET.DR PO SCH (09:41)
--- NOTE | 2023-02-23 09:59 | P.HPOR ---
History of Present Illness H&P Date: 02/23/23 Chief Complaint: Recent fall, right hip pain History of Presenting Illness Patient is a pleasantly confused 87-year-old female who was brought in via EMS due to a recent fall at her care facility, [facility]. Patient is a poor historian due to her medical diagnosis of advanced Alzheimer's dementia, she is alert and oriented to self. Patient is normally independent with walker, according to the care facility staff, patient was ambulatory without her walker and fell onto her right hip. She did not hit her head or lose consciousness. Patient is not taking any blood thinners. She has a past medical history of pul monary fibrosis and angina anxiety, and orthostatic hypotension. Patient is under the care of a public guardian that is listed in her chart. Patient seen and examined this morning. Patient is resting in bed, she is very tearful and anxious. RN is present at bedside providing emotional support. Patient is alert and oriented to self, she is aware that she is not in her home. Staff reported patient pulled her Maddox catheter out last night, currently has Purewick in place. Maddox may be placed in OR. Informed patient of surgical intervention and plan of care. Patient has remained NPO for surgical intervention. Nursing is attempting to make contact with her guardian for consent of treatment and surgical intervention. CT of the right hip demonstrates a comminuted right proximal femur basicervical fracture with varus deformity. Review of Systems Pertinent positives and negatives as discussed in HPI, a complete review of systems was performed and all other systems are negative. Physical Examination Inspection: Negative for any open fractures, ecchymosis, significant erythema/ulcers. No bruising noted over the right hip region. Right lower extremity is externally rotated. Sensation: Sensation is equal, symmetric, bilaterally intact throughout the upper and lower extremities Palpation: Nontender to palpation throughout bilateral upper and left lower extremities and throughout spine exam. TTP over the right hip region. Range of motion: Patient does have full range of motion bilateral upper and left lower extremities on exam. Limited ROM to the right lower extremity due to fracture and pain. Motor: 5/5 in all major motor groups in the bilateral upper and left lower extremities, 4-/5 right lower extremity Special tests: Negative Homans bilaterally. Negative Leigh Ann bilaterally. Negative clonus bilaterally. Neurovascular: Radial pulse intact, 2+ bilaterally. Cap refill under 3 seconds in digits upper extremities Assessment and Plan Fall with trauma Right IT fracture Multiple comorbidities -Remain NPO -Surgical intervention planned for this afternoon 02/23/23 Right hip IM nail -Continue with pain management, IV morphine, ice prn. -Maddox catheter to be placed in OR -NWB RLE at this time. I reviewed and discussed this case with my attending Dr. Herron, whom has reviewed this chart and films and is in agreement with assessment and plan of care as outlined above. I have personally seen and examined the patient, performed the documentation and the assessment and plan as written. Number of minutes spent on the visit: 20m. Past Medical History Past Medical History: Chest Pain / Angina, Dementia, Hypertension Additional Past Medical History / Comment(s): alzheimers dementia, pulmonary fibrosis and angina anxiety, orthostatic hypotension History of Any Multi-Drug Resistant Organisms: None Reported Past Surgical History: Appendectomy Past Anesthesia/Blood Transfusion Reactions: Unable to Obtain Past Psychological History: Anxiety, Depression Smoking Status: Never smoker Past Alcohol Use History: Unable to Obtain Past Drug Use History: Unable to Obtain - Past Family History Father Additional Family Medical History / Comment(s): Unable to obtain due to mental status Medications and Allergies Home Medications Medication Instructions Recorded Confirmed Type Aspirin [Adult Low Dose Aspirin EC] 81 mg PO DAILY 12/21/18 02/22/23 History Magnesium Hydroxide [Milk of 1,200 mg PO DAILY PRN 12/21/18 02/22/23 History Magnesia] ALPRAZolam [Xanax] 0.25 mg PO Q8H PRN 05/10/22 02/22/23 History Atorvastatin [Lipitor] 20 mg PO HS 05/10/22 02/22/23 History Lactose-Reduced Food [Boost] 237 ml PO DAILY 05/10/22 02/22/23 History Nystatin 100,000 Unit/gm Powd 1 applic TOPICAL BID PRN 05/10/22 02/22/23 History [Mycostatin Powder] OLANZapine 5 mg PO HS 05/10/22 02/22/23 History guaiFENesin [guaiFENesin Oral 400 mg PO Q6H PRN 05/10/22 02/22/23 History Solution] Acetaminophen [Tylenol Arthritis] 650 mg PO BID 02/22/23 02/22/23 History Benzonatate [Tessalon Perle] 200 mg PO TID PRN 02/22/23 02/22/23 History Divalproex [Depakote] 250 mg PO DAILY 02/22/23 02/22/23 History Erythromycin Ophth Oint [Romycin 0.5 inch LEFT EYE BID 02/22/23 02/22/23 History Ophth Oint] Escitalopram [Lexapro] 20 mg PO DAILY 02/22/23 02/22/23 History Lactulose 10 gm PO DAILY 02/22/23 02/22/23 History Mirtazapine 30 mg PO HS 02/22/23 02/22/23 History Sennosides/Docusate Sodium [Senna 1 cap PO BID 02/22/23 02/22/23 History Plus 8.6-50 mg Softgel] diphenhydrAMINE & Zinc Cream 1 applic TOPICAL TID PRN 02/22/23 02/22/23 History [Benadryl Cream] Allergies Allergy/AdvReac Type Severity Reaction Status Date / Time No Known Allergies Allergy Verified 02/22/23 21:56 Results - Labs Labs: Abnormal Lab Results - Last 24 Hours (Table) 02/22/23 02/22/23 02/22/23 Range/Units 18:52 18:52 21:16 WBC 12.8 H (3.8-10.6) k/uL RBC (3.80-5.40) m/uL Plt Count (150-450) k/uL Neutrophils # 10.3 H (1.3-7.7) k/uL BUN 18 H (7-17) mg/dL Glucose 103 H (74-99) mg/dL Urine Appearance Cloudy H (Clear) Urine Protein Trace H (Negative) Ur Leukocyte Esterase Large H (Negative) Urine WBC 24 H (0-5) /hpf Urine Bacteria Moderate H (None) /hpf Urine Mucus Few H (None) /hpf 02/23/23 Range/Units : WBC 10.8 H (3.8-10.6) k/uL RBC 3.72 L (3.80-5.40) m/uL Plt Count 136 L (150-450) k/uL Neutrophils # 8.5 H (1.3-7.7) k/uL BUN (7-17) mg/dL Glucose (74-99) mg/dL Urine Appearance (Clear) Urine Protein (Negative) Ur Leukocyte Esterase (Negative) Urine WBC (0-5) /hpf Urine Bacteria (None) /hpf Urine Mucus (None) /hpf H & H 02/22/23 02/23/23 Range/Units 18:52 06: Hgb 13.2 11.4 (11.4-16.0) gm/dL Hct 40.9 35.1 (34.0-46.0) % Coagulation 02/22/23 Range/Units 18:52 INR 1.0 (<1.2) Result Diagrams: 02/23/23 06:23 02/22/23 18:52
[2023-02-23] MEDS: MORPHINE SULFATE 4 MG/ML SYRINGE IV PRN ×2 (11:09→21:15)
[2023-02-23 11:30] LABS: Blood Urea Nitrogen 17.7 mg/dL (9.0-27.0); Calcium 8.5 mg/dL (8.7-10.3); Carbon Dioxide 25.3 mmol/L (21.6-31.8); Chloride 104 mmol/L (96-109); Glucose 108 mg/dL (70-110); Potassium 4.3 mmol/L (3.5-5.5); Sodium 140 mmol/L (135-145)
--- NOTE | 2023-02-23 11:47 | P.PN ---
Subjective Progress Note Date: 02/23/23 Patient is an 87-year-old female with dementia, dyslipidemia, and vitamin D deficiency who presented to the emergency room with all her adult foster care. In the ER she was found to have a comminuted right proximal femur fracture with varus angulation Patient seen and examined at bedside. She is able to do simple yes no questions. She denies having any pain. She does report being hungry. I did discuss with the caretakers at her adult foster care. She is typically accurate and yet no simple questions about her needs but does not communicate otherwise. She is typically able to get from standing to sitting and sitting to walking on her own. She uses a rolling walker. She does not have any family. Vital signs reviewed General: nontoxic, no distress, appears at stated age Cardiovascular: S1S2 reg with grade III systolic ejection murmur , no murmur, positive posterior tibial pulse bilateral, Lungs: CTA bilateral, no rhonchi, no rales , no accessory muscle use Abdominal: soft, nontender to palpation, no guarding, no appreciable organomegaly Ext: no gross muscle atrophy, no edema b/l lower extremities, no contractures Neuro: CN II-XI grossly intact, no focal neuro deficits Psych: Alert, oriented to self, flat affect Assessment/plan: 87-year-old female with a comminuted right proximal femur fracture with varus angulation Pre-op Risk Stratification -Patient is unable to participate in any history giving. She has a court- appointed guardian was unfamiliar with her medical history. Records were obtained from her daughter foster care and patient does have a history of dementia with behavioral disturbances, constipation, dyslipidemia, and vitamin D deficiency. She has no history of known of any cardiac conditions. She does have a systolic ejection murmur which has not been fully investigated. However given her hip fracture and need for surgery within 24 hours would recommend no additional testing prior to surgery. Patient denies any active chest pain. Due to the inability to obtain an accurate history patient is at high risk for any proposed noncardiac surgery. - She does need pre-op EKG which will be obtained incase she develops any post- op symptoms -Suggest scheduled Tylenol after surgery for pain control Dyslipidemia - statin Dementia with behavioral disturbance -Continue with Xanax 0.25 mg every other hours as needed, Depakote 250 mg daily, Lexapro 20 mg daily Urinary tract infection ruled out -Patient has contaminated sample with 4 squamous cells she does have 24 white blood cells but her nitrates are negative. This is a contaminated specimen. No additional antibiotics are warranted for urinary tract infection. Imaging: CT hip-comminuted right proximal femur fracture CT head and cervical spine-no acute intracranial process, nonspecific white matter ischemic changes, no cervical spine fracture, moderate multilevel degenerative changes Chest x-ray-no acute process Data Review: Vitals reviewed temperature 98.2, pulse 87, respirations 16, blood pressure 13 2/78, O2 sat 91% on room air Labs reviewed and white blood cell count 10.8, platelet count 136 Thank you for allowing us to participate in the care of this pleasant patient. Do not hesitate to contact us with questions. Someone can be reached from the [facility] hospitalist group all hours of the day at [phone] or via [employer]. This dictation was prepared using [employer] voice recognition software. Though every attempt is made to correct errors during dictation some may still exist. Objective - Vital Signs Vital signs: Vital Signs Temp 98.2 F 02/23/23 07:49 Pulse 87 02/23/23 07:49 Resp 16 02/23/23 07:49 BP 132/78 02/23/23 07:49 Pulse Ox 91 L 02/23/23 07:49 FiO2 Intake & Output 02/22/23 02/23/23 02/23/23 18:59 06:59 18:59 Output Total 380 Balance -380 Weight 81.647 kg 81.647 kg Output: Urine 380 Other: Voiding Method External Catheter # Voids 1 - Labs CBC & Chem 7: 02/23/23 06:23 02/23/23 06:23 Labs: Abnormal Lab Results - Last 24 Hours (Table) 02/22/23 02/22/23 02/22/23 Range/Units 18:52 18:52 21:16 WBC 12.8 H (3.8-10.6) k/uL RBC (3.80-5.40) m/uL Plt Count (150-450) k/uL Neutrophils # 10.3 H (1.3-7.7) k/uL BUN 18 H (7-17) mg/dL BUN/Creatinine Ratio (12.00-20.00) Ratio Glucose 103 H (74-99) mg/dL Calcium (8.7-10.3) mg/dL Urine Appearance Cloudy H (Clear) Urine Protein Trace H (Negative) Ur Leukocyte Esterase Large H (Negative) Urine WBC 24 H (0-5) /hpf Urine Bacteria Moderate H (None) /hpf Urine Mucus Few H (None) /hpf 02/23/23 02/23/23 Range/Units :23 06:23 WBC 10.8 H (3.8-10.6) k/uL RBC 3.72 L (3.80-5.40) m/uL Plt Count 136 L (150-450) k/uL Neutrophils # 8.5 H (1.3-7.7) k/uL BUN (7-17) mg/dL BUN/Creatinine Ratio 29.50 H (12.00-20.00) Ratio Glucose (74-99) mg/dL Calcium 8.5 L (8.7-10.3) mg/dL Urine Appearance (Clear) Urine Protein (Negative) Ur Leukocyte Esterase (Negative) Urine WBC (0-5) /hpf Urine Bacteria (None) /hpf Urine Mucus (None) /hpf
[2023-02-23] MEDS: SODIUM CHLORIDE 0.9% 1,000 ML IV SCH (13:08)
--- NOTE | 2023-02-23 15:23 | P.PN ---
Progress Note - Text Progress Note Date: 02/23/23 Patient seen and examined, I reviewed the note, discussed the case with the REGISTERED DENTAL HYGIENIST first hand and agree with the assessment and plan of Horacio Suh NP. Please see my notes below for any additional recommendations. Orthopedic Surgery Risk Review Kurt Adams is a 80-year-old female presenting for evaluation of sudden onset right hip pain, inability to ambulate after . On standing. It was my pleasure to have seen and examined Kurt Adams. In our visit today we have had a chance to go over subjective complaints, physical examination findings and treatments including the natural course history without intervention and various interventional options. her imaging demonstrates right hip intertrochanteric fracture two-part. On physical exam, Kurt Quinoneskdemonstrates pain with motion of right lower extremity, which is NV intact at this time. I have explained to the patient that this fracture needs stabilization. Based on the patients imaging, physical exam, and the rapid progression and disabling nature of her symptoms, at this time I recommend surgery in the form or a: right hip intramedullary nail fixationI discussed the risk and benefits of this procedure at length with Kurt Adams and guardian service. Questions were invited and answered, and the patient wishes to proceed as outlined below. Currently, I am recommendin. right hip intramedullary nail fixation 2. Review of surgical risks and benefits as well as an educational packet on the proposed surgical procedure. Risks: All surgical procedures come with inherent risks, including those related to positioning, anesthesia, intraoperative findings, and postoperative complicati ons. It is important to understand that surgery does not come with any guarantee of a successful outcome as complications and adverse events are always possible. The patient was given a handout discussing the surgical procedure and risks associated with the intervention, both of which were discussed with the patient. These risks include but are not limited to the following: - Experiencing same, different or even worse symptoms compared to before surgery. - Requiring further surgery or other forms of treatment presently or at some time in the future . - On an extreme but fortunately relatively rare basis severe complication such as blindness, stroke, heart attack, temporary and/or permanent nerve injury, paralysis, coma, or may occur, sometimes without known explanation. - Surgical complications may include but are not limited to risk of infection, fluid accumulation in the surgical dissection site, including a seroma or hematoma, that requires additional surgery, wound drainage, bleeding, new numbness or weakness, vision changes/loss, spinal fluid leakage, non-healing and/or infected incision, headaches, difficulty or inability to swallow, h oarseness, hemopneumothorax, pneumothorax, injury to nerves, spinal cord, blood vessels, lymphatics or other vital organs (i.e., bowel injury, injury to the great vessels); heterotopic bone formation; complications related to the hardware such as screws, rods, including misplaced hardware, device failure, hardware fracture/breakage, or hardware loosening; retained surgical instrumentations or devices and the need for further surgery. - Medical risks of the planned surgery include but are not limited to generalized Infections to the whole body or local areas outside of the surgical site (sepsis), heart attack, bleeding, anaphylaxis, meningitis, seizure, epilepsy, hearing loss, burn ahque, laceration of the head or other areas of the body, bruising, hypersensitivity of the skin, bladder over distension; allergic reaction; shoulder injury related to positioning; fat, blood and air clots to other areas of the body like heart, lungs, brain; failure of internal organs such as lungs, kidneys, liver and excessive bleeding. If blood transfusions are necessary, note that transfusions may cause intolerance reactions such as anaphylaxis or other complex reactions. Despite best efforts, the results of surgery might not heal in terms of bone, soft tissues such as skin, fascia, ligaments, and joints. [facility] has multiple operating rooms with single and overlapping rooms running daily. They currently function under the required guidelines as produced by the Senate Finance Committee with regards to the overlapping rooms and will continue to comply with changes to this policy as they occur. The requirements include and are complied with as follows: (1) the critical portions of the overlapping rooms will not occur at the same time, (2) the attending phys ician will be physically present during the critical portions of the procedure and immediately available during the entire case, and (3) a back-up attending is designated should the primary attending not be immediately available. The patient has had a chance to review all the listed information, has been given print outs detailing this information, and has had all his/her questions answered to their satisfaction. It was my pleasure to have seen and examined Kurt Adams. In our visit today we have had a chance to go over my understanding of our patient's current c ondition, the natural course history without intervention and various interventional options. Questions were invited and answered, and the patient wishes to proceed as outlined above. I have seen and examined the patient for 25 minutes and we have spent more than 50% of the time in repeat and detailed counseling about the patient's condition, its natural course history with out and as much as can be predicted with surgery and re-review of various surgical treatment options. In conclusion,Kurt Adams and guardian service requested we proceed with the above suggested surgery and are willing to accept risks and limitations of the suggested surgery as nature of the disease process and our best attempts at treatment for the condition. Thank you again for allowing us to be part of your patient's care. Please don't hesitate to contact me if you have any further questions. Signed and authenticated by: Rajan Goddard [facility] [address] [facility], [address] [address]
[2023-02-23] MEDS ORDERED: LACTATED RINGERS 1,000 ML IV ONE ×2 (15:45)
[2023-02-23] MEDS ORDERED: TRANEXAMIC 1,000 MG/100ML-NACL 1,000 MG in SALINE 1 100ML.BAG IVPB ONE ×2 (16:05→16:20)
[2023-02-23] MEDS ORDERED: PHENYLEPHRINE-0.9% NACL SYG 1,000 MCG/10 ML SYRINGE ONE (17:59)
[2023-02-23] MEDS ORDERED: KETAMINE 10 MG/ML 20 ML VIAL ONE (17:59)
[2023-02-23] MEDS ORDERED: TRANEXAMIC 1,000 MG/100ML-NACL PREMIX BAG ONE (17:59)
[2023-02-23] MEDS ORDERED: HYDROcodone/APAP 5-325MG 1 EACH TAB PO PRN (19:15)
[2023-02-23] MEDS ORDERED: NALOXONE 0.4 MG/ML 1 ML VIAL IV PRN (19:15)
[2023-02-23] MEDS ORDERED: MAGNESIUM HYDROXIDE 2,400 MG/30 ML CUP PO PRN (19:15)
[2023-02-23] MEDS ORDERED: HYDROmorphone 0.5 MG/0.5 ML SYRINGE IVP PRN ×2 (19:15)
--- NOTE | 2023-02-23 19:33 | XR ---
Fluoroscopy History: RIGHT IT NAILING right IT hip nailing. 8 images sent. fluoro time 45 seconds. [address] Herron.
--- NOTE | 2023-02-23 20:34 | P.OP ---
Date of Procedure: 02/23/23 Preoperative Diagnosis: 1. Right hip IT fracture, peritrochanteric fracture 2. sp ffs Postoperative Diagnosis: 1. Right hip IT fracture, peritrochanteric fracture 2. sp ffs Procedure(s) Performed: 1. Right hip IMN fixation Implants: Arellano and nephew [id number] 95/90 lag/compress Anesthesia: GETA, spinal Surgeon: Rajan Herron Chucking Lathe Operator #1: Maurisio Denis Estimated Blood Loss (ml): 100 IV fluids (ml): 500 Urine output (ml): 450 Pathology: none sent Condition: stable Disposition: PACU Indications for Procedure: Kurt Adams is a 80-year-old female presenting for evaluation of sudden onset right hip pain, inability to ambulate after . On standing. It was my pleasure to have seen and examined Kurt Adams. In our visit today we have had a chance to go over subjective complaints, physical examination findings and treatments including the natural course history without intervention and various interventional options. her imaging demonstrates right hip intertrochanteric fracture two-part. On physical exam, Kurt Meridaemonstrates pain with motion of right lower extremity, which is NV intact at this time. I have explained to the patient that this fracture needs stabilization. Based on the patients imaging, physical exam, and the rapid progression and disabling nature of her symptoms, at this time I recommend surgery in the form or a: right hip intramedullary nail fixationI discussed the risk and benefits of this procedure at length with Kurt Adams and guardian service. Questions were invited and answered, and the patient wishes to proceed as outlined below. Currently, I am recommendin. right hip intramedullary nail fixation Description of Procedure: Right hip short IMN The patient was seen and examined in the preoperative area. All preoperative protocols were followed. Informed consent was obtained risks and benefits of the procedure were discussed at length. Risks including bleeding infection damage to the surrounding tissue and risk of reoperation were discussed with the patient. Risk of anesthesia up to and including was a discussed with the patient. These are outlined in the risk reviewed. They were willing to accept these risks and all of the risks of surgery. The patient was given a weight- based dose of antibiotics in the form of 2 g Ancef. The patient was seen and evaluated by the anesthesia team who deemed them fit for surgery. The site was marked, the patient was willing to proceed with the procedure. The patient was transferred to the operative suite by the Department of anesthesia. There were then drifted off to sleep by the department of anesthesia andGETA anesthesia was used. Once adequate anesthesia had been obtained the patient was carefully transferred to the operative bed. All bony prominences were padded accordingly. SCDs were placed on the nonoperative lower extremities. Arms were well padded. the patient was transferred to the Arina table and her right leg was placed in a Arina boot and secured to the table left leg was placed in a well-leg lockhart well padded and secured. The post was placed and she was secured appropriately. arms were placed on arm boards and well-padded Preoperative briefing was done with the operative team and everyone was ready for the procedure to start. Xray used to reduce the fracture with Arina table. The patients right leg was then prepped and draped in the normal sterile fashion. Timeout was then performed and all parties in agreement with the procedure to be performed. X-ray was then used to ralph 2 cm proximal to the GT. Skin incision made in line with the femur and blunt dissection taken down to the deep facia which was split. Blut dissetion then taken down to the tip of the GT and the sharp awl used. Optimal starting point achieved on AP and Lateral imaging. Awl was then advaced into the proximal femur. Ball tip guidewire was then passed into the femur. It was confirmed on Ap and laterl. Opening reamer then passed followed by 9, 11 and 13 mm reamers. Then the nail was selected and impacted into place over the wire using flouroscopic guidance. Once in position the lateral guide was placed and skin incisoin made in line with the femur over the lateral aspect. Dissection taken down through the tensor facia which was split inline with its fibers. The guide was seated against bone. Pin was placed through guide for the lag screw to be with in 10mm on Ap and lateral of the subchondarl bone. This was then measured. Appropriate sized compression screw then selected and drilled. Then the lag screw drilled. Lag screw placed over the wire followed by the compression screw. About 7 mm of compression was achieved. Good alignment in AP and lateral shown. The nail was then locked proximally. Distal locking screw was then placed through the jig using similar technique. Screw was drilled and measured and placed. AP and lateral confirmed good placement and good fracture reduction as well as stability in ROM. The guid was then removed from the nail. The wound was then copiously irrigated with normal sterile saline final AP and lateral fluoroscopic imaging confirmed good placement of pins as well as reduction of fracture. The deep fascia was then closed with 0 Vicryl superficial closed 2-0 Vicryl and skin closed with skin claudette the wound edges approximated very well. The wound was then cleaned and dressed with an optifoam dressing. The patient was then transferred back to their hospital bed. There were awakened by department of anesthesia having tolerated the procedure very well with no complications. The patient was then transported to the postoperative care unit in stable condition.
[2023-02-23 21:16] LABS: Basophils % (A) 0 %; Eosinophils # (A) 0.1 k/uL (0-0.7); Eosinophils % (A) 1 %; HCT 33.1 % (34.0-46.0); HGB 10.3 gm/dL (11.4-16.0); Lymphocytes # (A) 0.8 k/uL (1.0-4.8); Lymphocytes % (A) 6 %; MCH 29.4 pg (25.0-35.0); MCHC 31.1 g/dL (31.0-37.0); MCV 94.4 fL (80.0-100.0); Mean Platelet Volume 8.3; Monocytes # (A) 0.8 k/uL (0-1.0); Monocytes % (A) 7 %; Neutrophils # (A) 10.6 k/uL (1.3-7.7); Neutrophils % (A) 85 %; Platelet Count 142 k/uL (150-450); RBC 3.51 m/uL (3.80-5.40); RDW 13.1 % (11.5-15.5); WBC 12.5 k/uL (3.8-10.6)
[2023-02-23] MEDS: SENNOSIDES-DOCUSATE SODIUM 1 EACH TAB PO SCH (21:17)
--- NOTE | 2023-02-23 22:37 | FL ---
EXAMINATION TYPE: FL guidance operating room DATE OF EXAM: 02/23/2023 CLINICAL HISTORY: Right hip fracture. TECHNIQUE: Fluoroscopy. COMPARISON: None. FINDINGS: Fluoroscopic guidance was provided during ORIF procedure performed by Dr. Herron. A t otal of 458 seconds of fluoroscopic time was utilized during the procedure and 8 spot images was acqu ired. Total dose area product (DAP) in uGy*m?, mGy*cm? (or similar: 5.4572. IMPRESSION: As Above.
[2023-02-24] MEDS: SODIUM CHLORIDE 0.9% 1,000 ML IV SCH ×2 (01:25→17:34)
[2023-02-24] MEDS: MORPHINE SULFATE 4 MG/ML SYRINGE IV PRN ×2 (01:25→17:33)
[2023-02-24 07:53] LABS: HCT 30.2 % (34.0-46.0); HGB 9.7 gm/dL (11.4-16.0); Hypochromasia Slight; MCH 31.1 pg (25.0-35.0); MCV 97.3 fL (80.0-100.0); Mean Platelet Volume 8.4; Platelet Count 133 k/uL (150-450); RBC 3.11 m/uL (3.80-5.40); RDW 12.9 % (11.5-15.5); WBC 12.2 k/uL (3.8-10.6)
[2023-02-24 08:09] LABS: African American GFR (CKD) >90 (>60 ml/min/1.73 sqM); Anion Gap 4 mmol/L; Blood Urea Nitrogen 16 mg/dL (7-17); Calcium 7.9 mg/dL (8.4-10.2); Carbon Dioxide 24 mmol/L (22-30); Chloride 106 mmol/L (98-107); Glucose 133 mg/dL (74-99); Non-African American GFR(CKD) 90 (>60 ml/min/1.73 sqM); Potassium 4.1 mmol/L (3.5-5.1); Sodium 134 mmol/L (137-145)
[2023-02-24] MEDS: ESCITALOPRAM 20 MG TAB PO SCH (09:29)
[2023-02-24] MEDS: DIVALPROEX 250 MG TABLET.DR PO SCH (09:29)
--- NOTE | 2023-02-24 12:09 | P.PN ---
Subjective Progress Note Date: 02/24/23 Principal diagnosis: Right hip IT fracture Patient seen at bedside this morning lying semirecumbent position with dressings present over right hip. Patient mentions she has some right hip pain at this time. Patient does not give any other information during encounter. Patient d enies chest pain, fever, shortness of breath, nausea, vomiting, change in vision, loss of bowel/bladder control. Objective - Vital Signs Vital signs: Vital Signs Temp 98.3 F 02/24/23 07:19 Pulse 82 02/24/23 07:19 Resp 14 02/24/23 07:19 BP 132/69 02/24/23 07:19 Pulse Ox 95 02/24/23 07:19 FiO2 Intake & Output 02/23/23 02/24/23 02/24/23 18:59 06:59 18:59 Intake Total 650 100 Output Total 100 750 Balance 550 -650 Weight 81.647 kg Intake: IV 650 100 Output: Urine 750 Straight 750 Estimated Blood Loss 100 Other: Voiding Method External Catheter External Catheter - Exam Right hip: Distal incision does present with some spotting. Proximal incision does appear to be clean, dry, intact at this time. [place] appear to be well aligned at this time. Negative for any active drainage. There is some ecchymosis present. There is minimal soft tissue swelling and ecchymosis surrounding the medial and lateral aspects of the incision. Calf is soft, no tenderness with palpation. Plantar flexion, dorsiflexion, EHL, FHL are intact. Sensory exam to light touch throughout the extremity is intact, dorsal pedis pulses 2+. - Labs CBC & Chem 7: 02/24/23 07:40 02/24/23 07:40 Labs: Abnormal Lab Results - Last 24 Hours (Table) 02/23/23 02/23/23 02/24/23 Range/Units : 20:50 07:40 WBC 12.5 H 12.2 H (3.8-10.6) k/uL RBC 3.51 L 3.11 L (3.80-5.40) m/uL Hgb 10.3 L 9.7 L (11.4-16.0) gm/dL Hct 33.1 L 30.2 L (34.0-46.0) % Plt Count 142 L 133 L (150-450) k/uL Neutrophils # 10.6 H (1.3-7.7) k/uL Lymphocytes # 0.8 L (1.0-4.8) k/uL Sodium (137-145) mmol/L Creatinine (0.52-1.04) mg/dL BUN/Creatinine Ratio 29.50 H (12.00-20.00) Ratio Glucose (74-99) mg/dL Calcium 8.5 L (8.7-10.3) mg/dL 02/24/23 Range/Units 07:40 WBC (3.8-10.6) k/uL RBC (3.80-5.40) m/uL Hgb (11.4-16.0) gm/dL Hct (34.0-46.0) % Plt Count (150-450) k/uL Neutrophils # (1.3-7.7) k/uL Lymphocytes # (1.0-4.8) k/uL Sodium 134 L (137-145) mmol/L Creatinine 0.48 L (0.52-1.04) mg/dL BUN/Creatinine Ratio (12.00-20.00) Ratio Glucose 133 H (74-99) mg/dL Calcium 7.9 L (8.7-10.3) mg/dL Assessment and Plan Assessment: 1. Right hip IT fracture - Postoperative day 1 status post right hip IM nail Plan: 1. Right hip IT fracture - right hip IM nail surgery performed yesterday, 02/23/2023. Patient stable at bedside this morning. Plan for discharge to rehab tomorrow. Weightbearing as tolerated w/walker. PT/OT daily. Patient medication as needed. We will continue to follow patient during her stay in hospital. plan for Dressing change tomorrow for discharge to rehab. 2. Appreciate medical management 3. Pain management - [place]; Tylenol 4. DVT prophylaxis - Lovenox 5. GI prophylaxis - milk of mag; senna 6. PT/OT - weightbearing as tolerated with walker assistance 7. Encourage incentive spirometer use 8. Discharge planning - Plan for discharge to rehab tomorrow. Time with Patient: Less than 30
[2023-02-24] MEDS: ENOXAPARIN 40 MG/0.4 ML SYRINGE SQ SCH (13:11)
--- NOTE | 2023-02-24 18:22 | P.PN ---
Subjective Progress Note Date: 02/24/23 (delayed charting seen at 0830) Patient is an 87-year-old female with dementia, dyslipidemia, and vitamin D deficiency who presented to the emergency room with all her adult foster care. In the ER she was found to have a comminuted right proximal femur fracture with varus angulation Patient seen and examined at bedside. SHe reports being thirsty. She denies pain. Vital signs reviewed General: nontoxic, no distress, appears at stated age Cardiovascular: S1S2 reg with grade III systolic ejection murmur , no murmur, positive posterior tibial pulse bilateral, Lungs: CTA bilateral, no rhonchi, no rales , no accessory muscle use Abdominal: soft, nontender to palpation, no guarding, no appreciable organomegaly Ext: no gross muscle atrophy, no edema b/l lower extremities, no contractures Neuro: CN II-XI grossly intact, no focal neuro deficits Psych: Alert, oriented to self, flat affect Assessment/plan: 87-year-old female with a comminuted right proximal femur fracture with varus angulation - Patient case discussed with physical and occupational therapists. Patient will need rehabilitation on discharge and she is currently not able to walk independently, which was her prior functional status. Acute blood loss anemia -Anticipated outcome of surgery -No indication for transfusion -Repeat CBC in a.m. Dyslipidemia - statin Dementia with behavioral disturbance -Continue with Xanax 0.25 mg every other hours as needed, Depakote 250 mg daily, Lexapro 20 mg daily Urinary tract infection ruled out -Patient has contaminated sample with 4 squamous cells she does have 24 white blood cells but her nitrates are negative. This is a contaminated specimen. No additional antibiotics are warranted for urinary tract infection. Imaging: none new Data Review: Vital signs reviewed temperature 98.3, pulse 82, respirations 14, blood pressure 132/69, O2 sat 95% on room air Labs reviewed and remarkable for white blood cell count 12.2, hemoglobin 9.7, platelets 133, sodium 134, creatinine 0.48, and glucose of 133. Thank you for allowing us to participate in the care of this pleasant patient. Do not hesitate to contact us with questions. Someone can be reached from the [facility] hospitalist group all hours of the day at [phone] or via perfect serve. This dictation was prepared using [employer] voice recognition software. Th ough every attempt is made to correct errors during dictation some may still exist. Objective - Vital Signs Vital signs: Vital Signs Temp 98.3 F 02/24/23 11:38 Pulse 80 02/24/23 11:38 Resp 15 02/24/23 11:38 BP 121/72 02/24/23 11:38 Pulse Ox 97 02/24/23 11:38 FiO2 Intake & Output 02/23/23 02/24/23 02/24/23 18:59 06:59 18:59 Intake Total 650 100 950 Output Total 100 750 Balance 550 -650 950 Weight 81.647 kg Intake: IV 650 100 Intake, IV Titration 950 Amount Sodium Chloride 0.9% 1, 900 000 ml @ 75 mls/hr IV . [id number] [facility] Rx#:[id number] ceFAZolin 2 gm In Sodium 50 Chloride 0.9% 50 ml @ 100 mls/hr IVPB Q8H [facility] Rx#: [id number] Output: Urine 750 Straight 750 Estimated Blood Loss 100 Other: Voiding Method External Catheter External Catheter - Labs CBC & Chem 7: 02/24/23 07:40 02/24/23 07:40 Labs: Abnormal Lab Results - Last 24 Hours (Table) 02/23/23 02/24/23 02/24/23 Range/Units 20:50 07:40 07:40 WBC 12.5 H 12.2 H (3.8-10.6) k/uL RBC 3.51 L 3.11 L (3.80-5.40) m/uL Hgb 10.3 L 9.7 L (11.4-16.0) gm/dL Hct 33.1 L 30.2 L (34.0-46.0) % Plt Count 142 L 133 L (150-450) k/uL Neutrophils # 10.6 H (1.3-7.7) k/uL Lymphocytes # 0.8 L (1.0-4.8) k/uL Sodium 134 L (137-145) mmol/L Creatinine 0.48 L (0.52-1.04) mg/dL Glucose 133 H (74-99) mg/dL Calcium 7.9 L (8.4-10.2) mg/dL Microbiology - Last 24 Hours (Table) 02/22/23 21:16 Urine Culture - Preliminary Urine,Clean Catch Group D Enterococcus Gram Neg Bacilli
[2023-02-24] MEDS: SENNOSIDES-DOCUSATE SODIUM 1 EACH TAB PO SCH (21:09)
[2023-02-25] MEDS: SODIUM CHLORIDE 0.9% 1,000 ML IV SCH ×3 (06:26→20:56)
[2023-02-25 06:57] LABS: HCT 25.9 % (34.0-46.0); HGB 8.5 gm/dL (11.4-16.0); MCH 31.1 pg (25.0-35.0); MCV 94.2 fL (80.0-100.0); Mean Platelet Volume 8.5; Platelet Count 122 k/uL (150-450); RBC 2.75 m/uL (3.80-5.40); WBC 13.5 k/uL (3.8-10.6)
[2023-02-25] MEDS: ACETAMINOPHEN TAB 325 MG TAB PO PRN (08:43)
[2023-02-25] MEDS: ENOXAPARIN 40 MG/0.4 ML SYRINGE SQ SCH (08:43)
[2023-02-25] MEDS: DIVALPROEX 250 MG TABLET.DR PO SCH (08:43)
[2023-02-25] MEDS: ESCITALOPRAM 20 MG TAB PO SCH (08:49)
--- NOTE | 2023-02-25 10:34 | P.PN ---
Subjective Progress Note Date: 02/25/23 Principal diagnosis: Right hip IT fracture Patient seen at bedside this morning sleeping in chair with legs elevated with dressings present over right hip. Patient seems very groggy during encounter. Patient does not give any other information during encounter. Patient denies ch est pain, fever, shortness of breath, nausea, vomiting, change in vision, loss of bowel/bladder control. Objective - Vital Signs Vital signs: Vital Signs Temp 97.8 F 02/25/23 08:05 Pulse 98 02/25/23 08:05 Resp 16 02/25/23 08:05 BP 119/73 02/25/23 08:05 Pulse Ox 94 L 02/25/23 08:05 FiO2 Intake & Output 02/24/23 02/25/23 02/25/23 18:59 06:59 18:59 Intake Total 950 60 Output Total 425 350 Balance 525 -290 Intake: Intake, IV Titration 950 Amount Sodium Chloride 0.9% 1, 900 000 ml @ 75 mls/hr IV . [id number] [facility] Rx#:[id number] ceFAZolin 2 gm In Sodium 50 Chloride 0.9% 50 ml @ 100 mls/hr IVPB Q8H [facility] Rx#: [id number] Oral 60 Output: Urine 425 350 Other: Voiding Method Indwelling Catheter Indwelling Catheter - Exam Right hip: Distal incision does present with some spotting. Proximal incision does appear to be clean, dry, intact at this time. both dressings changed at bedside. [place] appear to be well aligned at this time. Negative for any active drainage. There is some ecchymosis present. There is minimal soft tissue swelling and ecchymosis surrounding the medial and lateral aspects of the incision. Calf is soft, no tenderness with palpation. Plantar flexion, dorsiflexion, EHL, FHL are intact. Sensory exam to light touch throughout the extremity is intact, dorsal pedis pulses 2+. - Labs CBC & Chem 7: 02/25/23 06:03 02/24/23 07:40 Labs: Abnormal Lab Results - Last 24 Hours (Table) 02/25/23 Range/Units 06:03 WBC 13.5 H (3.8-10.6) k/uL RBC 2.75 L (3.80-5.40) m/uL Hgb 8.5 L (11.4-16.0) gm/dL Hct 25.9 L (34.0-46.0) % Plt Count 122 L (150-450) k/uL Microbiology - Last 24 Hours (Table) 02/22/23 21:16 Urine Culture - Preliminary Urine,Clean Catch Group D Enterococcus Gram Neg Bacilli Assessment and Plan Assessment: 1. Right hip IT fracture - Postoperative day 2 status post right hip IM nail Plan: 1. Right hip IT fracture - right hip IM nail surgery performed 02/23/2023. Patient stable at bedside this morning. Discharge to rehab tomorrow. Weightbearing as tolerated w/walker. PT/OT daily. Patient medication as needed. Dressing changed at bedside this morning. Discharge to rehab today. 2. Appreciate medical management 3. Pain management - [place]; Tylenol 4. DVT prophylaxis - Lovenox 5. GI prophylaxis - milk of mag; senna 6. PT/OT - weightbearing as tolerated with walker assistance 7. Encourage incentive spirometer use 8. Discharge planning - Discharge to rehab tomorrow. Time with Patient: Less than 30
--- NOTE | 2023-02-25 10:40 | P.DS ---
Providers Date of admission: 02/22/23 20:37 Expected date of discharge: 02/25/23 Attending physician: Rajan Herron DO Consults: 02/22/23 20:37 Consult Physician Routine Consulting Provider: Liu Louis Consult Reason/Comments: medical management Do you want consulting provider notified?: Already Contacted Primary care physician: Lavon Wilkerson MD Hospital Course: Date of admission: 02/22/2023 Date of discharge: 02/25/2023 Admission diagnosis: Right hip IT fracture Discharge diagnosis: same Attending physician: Dr. Herron Surgical procedures: Right hip IM nail Brief history: Patient is a 87-year-old female with a history of right hip IT fracture status post fall. At this point patient has failed conservative tr eatment measures and has opted to proceed with a elective right hip IM nail. Hospital course: Details of patient's surgery can be found in operative report. Patient tolerated the procedure well and was subsequently transported to orthopedic floor. Patient's orthopeidc and medical care was provided daily. Patient had daily laboratory tests performed for evaluation of overall blood counts. Patient had daily physical therapy to include strengthening range of motion as well as education with walker ambulation. Patient was treated with Lovenox for their postoperative DVT prophylaxis during their inpatient stay. Patient was noted to have a relatively uneventful postoperative course. Patient reported satisfactory pain control with oral pain medications by postoperative day 2. Patient showed satisfactory progress with physical therapy. Patient moved steadily through the program and had no difficulty meeting the goals by postoperative day 2. Given patient's otherwise satisfactory course and having met physical therapy goals, plan is to discharge patient to rehab on postoperative day 2. Discharge condition/disposition: Patient will be discharged to rehab in stable condition. Discharge medications: Instructions are given on resumption of patient's normal daily medications per primary care recommendation, in addition patient will be prescribed [place]; Lovenox; senna. Discharge instructions: 1. Wound care and infection precautions, keep incision dry and covered while showering, no lotions, creams, moisturizers. No soaking, tubs, pools, hottubs. Do not scrub over the incision. 2. Weight-bear as tolerated with walker / cane until follow-up. 3. Ice and elevate when necessary. Do not exceed 20 minutes per hour with ice pack. 4. Utilize compression sleeve until seen at first follow up appointment. 5. Nursing care 6. Physical therapy 7. Pain meds and anticoagulants per prescription. 8. Pain medication has potential to cause constipation. Increase oral fluid and fiber intake. Contact primary care provider if you have not had a bowel movement within 48 hours after discharge 9. No anti-inflammatory medication until discussed at first post operative visit, this including Motrin, Aleve, Mobic, Diclofenac. 10. Follow up in office at [address] Rajan Herron 11. Follow up with your primary care doctor 7-10 days after discharge. 12. Contact [facility] with any questions, . Assessment: Right hip IT fracture Procedures: Right hip IM nail Patient Condition at Discharge: Stable Plan - Discharge Summary Discharge Rx Participant: No New Discharge Prescriptions: New HYDROcodone/APAP 5-325MG [[place] 5-325] 1 tab PO Q6HR PRN #21 tab PRN Reason: Pain Sennosides/Docusate Sodium [Senna Plus 8.6-50 mg Softgel] 1 each PO DAILY #20 capsule Enoxaparin [Lovenox] 40 mg SQ DAILY #28 each No Action Aspirin [Adult Low Dose Aspirin EC] 81 mg PO DAILY Magnesium Hydroxide [Milk of Magnesia] 1,200 mg PO DAILY PRN PRN Reason: Constipation OLANZapine 5 mg PO HS Atorvastatin [Lipitor] 20 mg PO HS guaiFENesin [guaiFENesin Oral Solution] 400 mg PO Q6H PRN PRN Reason: cough/congestion diphenhydrAMINE & Zinc Cream [Benadryl Cream] 1 applic TOPICAL TID PRN PRN Reason: Itching Divalproex [Depakote] 250 mg PO DAILY Lactulose 10 gm PO DAILY Benzonatate [Tessalon Perle] 200 mg PO TID PRN PRN Reason: Cough Nystatin 100,000 Unit/gm Powd [Mycostatin Powder] 1 applic TOPICAL BID PRN PRN Reason: yeast infection ALPRAZolam [Xanax] 0.25 mg PO Q8H PRN PRN Reason: Anxiety Lactose-Reduced Food [Boost] 237 ml PO DAILY Mirtazapine 30 mg PO HS Erythromycin Ophth Oint [Romycin Ophth Oint] 0.5 inch LEFT EYE BID Escitalopram [Lexapro] 20 mg PO DAILY Acetaminophen [Tylenol Arthritis] 650 mg PO BID Sennosides/Docusate Sodium [Senna Plus 8.6-50 mg Softgel] 1 cap PO BID Discharge Medication List Aspirin [Adult Low Dose Aspirin EC] 81 mg PO DAILY 12/21/18 [History] Magnesium Hydroxide [Milk of Magnesia] 1,200 mg PO DAILY PRN 12/21/18 [History] ALPRAZolam [Xanax] 0.25 mg PO Q8H PRN 05/10/22 [History] Atorvastatin [Lipitor] 20 mg PO HS 05/10/22 [History] Lactose-Reduced Food [Boost] 237 ml PO DAILY 05/10/22 [History] Nystatin 100,000 Unit/gm Powd [Mycostatin Powder] 1 applic TOPICAL BID PRN 05/10/22 [History] OLANZapine 5 mg PO HS 05/10/22 [History] guaiFENesin [guaiFENesin Oral Solution] 400 mg PO Q6H PRN 05/10/22 [History] Acetaminophen [Tylenol Arthritis] 650 mg PO BID 02/22/23 [History] Benzonatate [Tessalon Perle] 200 mg PO TID PRN 02/22/23 [History] Divalproex [Depakote] 250 mg PO DAILY 02/22/23 [History] Erythromycin Ophth Oint [Romycin Ophth Oint] 0.5 inch LEFT EYE BID 02/22/23 [History] Escitalopram [Lexapro] 20 mg PO DAILY 02/22/23 [History] Lactulose 10 gm PO DAILY 02/22/23 [History] Mirtazapine 30 mg PO HS 02/22/23 [History] Sennosides/Docusate Sodium [Senna Plus 8.6-50 mg Softgel] 1 cap PO BID 02/22/23 [History] diphenhydrAMINE & Zinc Cream [Benadryl Cream] 1 applic TOPICAL TID PRN 02/22/23 [History] Enoxaparin [Lovenox] 40 mg SQ DAILY #28 each 02/25/23 [Rx] HYDROcodone/APAP 5-325MG [[place] 5-325] 1 tab PO Q6HR PRN #21 tab 02/25/23 [Rx] Sennosides/Docusate Sodium [Senna Plus 8.6-50 mg Softgel] 1 each PO DAILY #20 capsule 02/25/23 [Rx] Follow up Appointment(s)/Referral(s): Lavon Wilkerson MD [Primary Care Provider] - 1-2 days Rajan Herron DO [Doctor of Osteopathic Medicine] - 2 Weeks Patient Instructions/Handouts: ORIF of Hip Fracture (DC) Activity/Diet/Wound Care/Special Instructions: Discharge instructions: 1. Wound care and infection precautions, keep incision dry and covered while showering, no lotions, creams, moisturizers. No soaking, tubs, pools, hottubs. Do not scrub over the incision. 2. Weight-bear as tolerated with walker / cane until follow-up. 3. Ice and elevate when necessary. Do not exceed 20 minutes per hour with ice pack. 4. Utilize compression sleeve until seen at first follow up appointment. 5. Nursing care 6. Physical therapy 7. Pain meds and anticoagulants per prescription. 8. Pain medication has potential to cause constipation. Increase oral fluid and fiber intake. Contact primary care provider if you have not had a bowel movement within 48 hours after discharge 9. No anti-inflammatory medication until discussed at first post operative visit, this including Motrin, Aleve, Mobic, Diclofenac. 10. Follow up in office at [address] Rajan Herron 11. Follow up with your primary care doctor 7-10 days after discharge. 12. Contact [facility] with any questions, . Keep incision clean, dry and intact. Silver foam dressing may be removed on 03/01/2023. Okay to shower over incision once silver foam dressings are removed Discharge Disposition: TRANSFER TO SNF/ECF
[2023-02-25 10:49] LABS: HCT 24.9 % (34.0-46.0); HGB 8.3 gm/dL (11.4-16.0); MCH 31.3 pg (25.0-35.0); MCHC 33.3 g/dL (31.0-37.0); MCV 94.2 fL (80.0-100.0); Mean Platelet Volume 8.7; Platelet Count 124 k/uL (150-450); RBC 2.64 m/uL (3.80-5.40); RDW 13.1 % (11.5-15.5); WBC 13.6 k/uL (3.8-10.6)
[2023-02-25] MEDS: ACETAMINOPHEN TAB 500 MG TAB PO SCH ×3 (11:58→22:58)
--- NOTE | 2023-02-25 14:54 | P.PN ---
Subjective Progress Note Date: 02/25/23 Patient is an 87-year-old female with dementia, dyslipidemia, and vitamin D deficiency who presented to the emergency room with all her adult foster care. In the ER she was found to have a comminuted right proximal femur fracture with varus angulation Patient seen and examined at bedside. She does say yes to hip pain. Vital signs reviewed General: nontoxic, no distress, appears at stated age Cardiovascular: S1S2 reg with grade III systolic ejection murmur , no murmur, positive posterior tibial pulse bilateral, Lungs: Decreased bs bilateral, no rhonchi, no rales , no accessory muscle use Abdominal: soft, nontender to palpation, no guarding, no appreciable organomegaly Ext: no gross muscle atrophy, no edema b/l lower extremities, no contractures Neuro: CN II-XI grossly intact, no focal neuro deficits Psych: Alert, oriented to self, flat affect Assessment/plan: 87-year-old female with a comminuted right proximal femur fracture with varus angulation - Patient case discussed with physical and occupational therapists. Patient will need rehabilitation on discharge and she is currently not able to walk independently, which was her prior functional status. Acute blood loss anemia -Anemia worsening. No obvious signs of bruising or bleeding. Will check CT abdomen and pelvis to rule out retroperitoneal bleed -Recommend continued hospitalization for one more day. Discussed with Dr. Herron -Repeat CBC in a.m. Dyslipidemia - statin Dementia with behavioral disturbance -Continue with Xanax 0.25 mg every other hours as needed, Depakote 250 mg daily, Lexapro 20 mg daily Urinary tract infection ruled out -Patient has contaminated sample with 4 squamous cells she does have 24 white blood cells but her nitrates are negative. This is a contaminated specimen. No additional antibiotics are warranted for urinary tract infection. Imaging: none new Data Review: Vital signs reviewed temperature 97.8, pulse 98, respirations 16, blood pressure 119/73, O2 sat 94% on 2 L Labs reviewed and hemoglobin 8.5 this morning, platelets 122 Thank you for allowing us to participate in the care of this pleasant patient. Do not hesitate to contact us with questions. Someone can be reached from the [facility] hospitalist group all hours of the day at [phone] or via [employer]. This dictation was prepared using [facility] voice recognition software. Though every attempt is made to correct errors during dictation some may still exist. Objective - Vital Signs Vital signs: Vital Signs Temp 97.9 F 02/25/23 12:45 Pulse 62 02/25/23 12:45 Resp 16 02/25/23 12:45 BP 109/50 02/25/23 12:45 Pulse Ox 93 L 02/25/23 12:45 FiO2 Intake & Output 02/24/23 02/25/23 02/25/23 18:59 06:59 18:59 Intake Total 950 60 Output Total 425 350 Balance 525 -290 Intake: Intake, IV Titration 950 Amount Sodium Chloride 0.9% 1, 900 000 ml @ 75 mls/hr IV . [id number] [facility] Rx#:[id number] ceFAZolin 2 gm In Sodium 50 Chloride 0.9% 50 ml @ 100 mls/hr IVPB Q8H [facility] Rx#: [id number] Oral 60 Output: Urine 425 350 Other: Voiding Method Indwelling Catheter Indwelling Catheter - Labs CBC & Chem 7: 02/25/23 10:35 02/24/23 07:40 Labs: Abnormal Lab Results - Last 24 Hours (Table) 02/25/23 02/25/23 Range/Units 06:03 10:35 WBC 13.5 H 13.6 H (3.8-10.6) k/uL RBC 2.75 L 2.64 L (3.80-5.40) m/uL Hgb 8.5 L 8.3 L (11.4-16.0) gm/dL Hct 25.9 L 24.9 L (34.0-46.0) % Plt Count 122 L 124 L (150-450) k/uL Microbiology - Last 24 Hours (Table) 02/22/23 21:16 Urine Culture - Preliminary Urine,Clean Catch Group D Enterococcus Gram Neg Bacilli
--- NOTE | 2023-02-25 15:28 | CT ---
EXAMINATION TYPE: CT abdomen pelvis wo con CT DLP: 1043.20 mGycm, Automated exposure control for dose reduction was used. DATE OF EXAM: 02/25/2023 3:13 PM COMPARISON: CT right hip 02/22/2023. CLINICAL INDICATION:Female, 87 years old with history of Anemia; AMS and Anemia TECHNIQUE: Standard CT of the abdomen and pelvis without IV or oral contrast. Lack of IV or oral co ntrast limits evaluation of solid and hollow organ viscera. Coronal and sagittal reformats were perfo rmed. FINDINGS: Motion degraded examination. LOWER CHEST: Posterior dependent subsegmental atelectasis is noted. Mild coronary arterial calcificat ions. Aortic valvular calcifications. ABDOMEN LIVER: Unremarkable noncontrast appearance GALLBLADDER AND BILE DUCTS: Layering increased densities within the lumen consistent with gallstones are present. No biliary ductal dilatation. PANCREAS: Unremarkable noncontrast appearance. SPLEEN: Unremarkable noncontrast appearance. ADRENAL GLANDS: Unremarkable noncontrast appearance. KIDNEYS AND URETERS: No evidence of hydronephrosis or renal calculus. PELVIS BLADDER: Nondistended with Maddox catheter in place. REPRODUCTIVE: Retroverted uterus with dystrophic calcifications most consistent with fibroid changes. ABDOMEN & PELVIS STOMACH AND BOWEL: Unremarkable. No evidence of bowel obstruction. PERITONEUM: No evidence of pneumoperitoneum or free fluid. VASCULATURE: Mild atherosclerotic calcifications are present throughout the abdominal aorta and its b ranches. No evidence of aortic aneurysm. Pelvic phleboliths. MUSCULOSKELETAL/SOFT TISSUES: . Postsurgical changes from right proximal femur intramedullary urmila and nail fixation for known comminuted right femoral neck fracture. This creates streak artifact which l imits evaluation. There is surrounding foci of gas and stranding identified attributable 2 recent pos tsurgical change. Asymmetric enlargement of the right gluteal musculature likely representing edema. Small hyperdense collection within the lateral right thigh soft tissues likely representing a hematom a. This measures grossly 4.6 x 1.9 cm (series 3, image 83). Additional small hematoma in the superior right lateral gluteal region measuring up to 2.4 cm (series 3, image 55). No definitive organized fl uid collection. Tiny fat filled lumbrical hernia. LYMPH NODES: No gross evidence for lymphadenopathy. IMPRESSION: Motion degraded examination. 1. Post surgical changes from right proximal femur fixation. There are surrounding inflammatory alves ges and gas related to surgery. There are 2 small soft tissue hematomas in this region as described a maa. 2. Fibroid changes of the uterus.
[2023-02-25 20:35] LABS: % Iron Saturation 5.38 (12.00-45.00)
[2023-02-25] MEDS: SENNOSIDES-DOCUSATE SODIUM 1 EACH TAB PO SCH (20:55)
[2023-02-25] MEDS: ALPRAZolam 0.25 MG TAB PO PRN (22:59)
[2023-02-26] MEDS: ACETAMINOPHEN TAB 500 MG TAB PO SCH ×3 (05:13→18:07)
[2023-02-26 07:27] LABS: HCT 23.3 % (34.0-46.0); HGB 7.5 gm/dL (11.4-16.0); MCH 30.5 pg (25.0-35.0); MCHC 32.2 g/dL (31.0-37.0); MCV 94.5 fL (80.0-100.0); Mean Platelet Volume 9.1; Platelet Count 138 k/uL (150-450); RBC 2.47 m/uL (3.80-5.40); RDW 13.1 % (11.5-15.5); WBC 11.6 k/uL (3.8-10.6)
[2023-02-26 07:46] LABS: Prothrombin Time 10.8 sec (9.0-12.0)
[2023-02-26 07:55] LABS: African American GFR (CKD) >90 (>60 ml/min/1.73 sqM); Anion Gap 4 mmol/L; Blood Urea Nitrogen 12 mg/dL (7-17); Calcium 7.6 mg/dL (8.4-10.2); Carbon Dioxide 29 mmol/L (22-30); Chloride 104 mmol/L (98-107); Glucose 94 mg/dL (74-99); Non-African American GFR(CKD) >90 (>60 ml/min/1.73 sqM); Potassium 3.5 mmol/L (3.5-5.1); Sodium 137 mmol/L (137-145)
[2023-02-26] MEDS: ENOXAPARIN 40 MG/0.4 ML SYRINGE SQ SCH (08:12)
[2023-02-26] MEDS: DIVALPROEX 250 MG TABLET.DR PO SCH (08:13)
[2023-02-26] MEDS: ESCITALOPRAM 20 MG TAB PO SCH (08:13)
--- NOTE | 2023-02-26 12:33 | P.PN ---
Subjective Progress Note Date: 02/26/23 Principal diagnosis: Right hip IT fracture Patient seen at bedside this morning lying in semirecumbent position in bed with dressings present over right hip. Patient seems very groggy during encounter. Patient does not give any other information during encounter. Patient denies chest pain, fever, shortness of breath, nausea, vomiting, change in vision, loss of bowel/bladder control. Objective - Vital Signs Vital signs: Vital Signs Temp 99.5 F 02/26/23 06:45 Pulse 93 02/26/23 06:45 Resp 16 02/26/23 06:45 BP 115/68 02/26/23 06:45 Pulse Ox 95 02/26/23 06:45 FiO2 Intake & Output 02/25/23 02/26/23 02/26/23 18:59 06:59 18:59 Intake Total 320 125 Output Total 300 600 350 Balance -300 -280 -225 Intake: Oral 320 125 Output: Urine 300 600 350 Other: Voiding Method Indwelling Catheter Indwelling Catheter Indwelling Catheter # Bowel Movements 1 - Exam Right hip: Both incisions present with some spotting. Jess appear to be well aligned at this time. Negative for any active drainage. There is some ecchymosis present. There is minimal soft tissue swelling and ecchymosis surrounding the medial and lateral aspects of the incision. Calf is soft, no tenderness with palpation. Plantar flexion, dorsiflexion, EHL, FHL are intact. Sensory exam to light touch throughout the extremity is intact, dorsal pedis pulses 2+. - Labs CBC & Chem 7: 02/26/23 06:57 02/26/23 06:57 Labs: Abnormal Lab Results - Last 24 Hours (Table) 02/25/23 02/26/23 02/26/23 Range/Units 14:32 06:57 06:57 WBC 11.6 H (3.8-10.6) k/uL RBC 2.47 L (3.80-5.40) m/uL Hgb 7.5 L (11.4-16.0) gm/dL Hct 23.3 L (34.0-46.0) % Plt Count 138 L (150-450) k/uL Creatinine 0.47 L (0.52-1.04) mg/dL Calcium 7.6 L (8.4-10.2) mg/dL Iron 12 L (50-170) UG/DL TIBC 223 L (228-460) UG/DL % Saturation 5.38 L (12.00-45.00) Transferrin 159.0 L (204.0-354.0) mg/dL Ferritin 305.0 H (10.0-291.0) ng/mL Microbiology - Last 24 Hours (Table) 02/22/23 21:16 Urine Culture - Final Urine,Clean Catch Enterococcus faecalis Proteus mirabilis Assessment and Plan Assessment: 1. Right hip IT fracture - Postoperative day 3 status post right hip IM nail Plan: 1. Right hip IT fracture - right hip IM nail surgery performed 02/23/2023. Patient stable at bedside this morning. Discharge to rehab once cleared by medicine. Weightbearing as tolerated w/walker. PT/OT daily. Patient medication as needed. Patient is stable from an orthopedic standpoint for discharge to rehab. At this time orthopedics is signing off. Please do not hesitate to contact us for any further questions. 2. Appreciate medical management 3. Pain management - [place]; Tylenol 4. DVT prophylaxis - Lovenox 5. GI prophylaxis - milk of mag; senna 6. PT/OT - weightbearing as tolerated with walker assistance 7. Encourage incentive spirometer use 8. Discharge planning - Discharge to rehab once cleared by medicine Time with Patient: Less than 30
[2023-02-26] MEDS: SODIUM CHLORIDE 0.9% 1,000 ML IV SCH (13:24)
--- NOTE | 2023-02-26 15:12 | P.PN ---
Subjective Progress Note Date: 02/26/23 Hospital Course: 87-year-old female with dementia, dyslipidemia, and vitamin D deficiency who presented to the emergency room with all her adult foster care. In the ER she was found to have a comminuted right proximal femur fracture with varus angulation. He is status post repair. Was found to have acute blood loss anemia, CT abdomen and pelvis shows postsurgical changes in right proximal femur, small to soft tissue hematomas in this region, urine fibroids. Hemoglobin continues to down trend, hemodynamically stable. Subjective: Seen and examined at bedside. No acute events overnight. Pertinent positives and negatives as discussed above, a complete review of systems was performed and all other systems are negative. Vitals Signs Reviewed. General: nontoxic, no distress, appears at stated age Derm: warm, dry Head: atraumatic, normocephalic, symmetric Eyes: EOMI, no lid lag, anicteric sclera Mouth: no lip lesion, mucus membranes moist Cardiovascular: S1S2 reg, no murmur Lungs: CTA bilateral, no rhonchi, no rales , no accessory muscle use Abdominal: soft, nontender to palpation, no guarding, no appreciable organomegaly Ext: no gross muscle atrophy, no edema, no contractures Neuro: CN II-XI grossly intact, no focal neuro deficits Psych: Alert Data Reviewed Today: Pertinent Labs: WBC 11.6, hemoglobin 7.5, creatinine 0.47 Imaging: CT abdomen and pelvis shows postsurgical changes in right proximal femur, 2 small soft tissue hematomas in this region, urine fibroids. Assessment and Plan: Acute blood loss anemia Right proximal femur fracture status post repair Dyslipidemia Dementia with behavioral disturbance -No active bleeding, repeat CBC tomorrow -Does have 2 small soft tissue hematomas noted on CT -Pain control with oral Tylenol, oral [place], IV Dilaudid, IV morphine as needed -Avoid narcotics if possible -Orthopedics surgery note reviewed, pending rehab discharge -Home medications reviewed and reconciled DVT ppx: Lovenox Code status: Full code Anticipated discharge place: Rehab Anticipated discharge time: Pending rehab bed Objective - Vital Signs Vital signs: Vital Signs Temp 98.7 F 02/26/23 13:00 Pulse 78 02/26/23 13:00 Resp 16 02/26/23 13:00 BP 129/66 02/26/23 13:00 Pulse Ox 95 02/26/23 13:00 FiO2 Intake & Output 02/25/23 02/26/23 02/26/23 18:59 06:59 18:59 Intake Total 320 125 Output Total 300 600 350 Balance -300 -280 -225 Intake: Oral 320 125 Output: Urine 300 600 350 Other: Voiding Method Indwelling Catheter Indwelling Catheter Indwelling Catheter # Bowel Movements 1 - Labs CBC & Chem 7: 02/26/23 06:57 02/26/23 06:57 Labs: Abnormal Lab Results - Last 24 Hours (Table) 02/25/23 02/26/23 02/26/23 Range/Units 14:32 06:57 06:57 WBC 11.6 H (3.8-10.6) k/uL RBC 2.47 L (3.80-5.40) m/uL Hgb 7.5 L (11.4-16.0) gm/dL Hct 23.3 L (34.0-46.0) % Plt Count 138 L (150-450) k/uL Creatinine 0.47 L (0.52-1.04) mg/dL Calcium 7.6 L (8.4-10.2) mg/dL Iron 12 L (50-170) UG/DL TIBC 223 L (228-460) UG/DL % Saturation 5.38 L (12.00-45.00) Transferrin 159.0 L (204.0-354.0) mg/dL Ferritin 305.0 H (10.0-291.0) ng/mL Microbiology - Last 24 Hours (Table) 02/22/23 21:16 Urine Culture - Final Urine,Clean Catch Enterococcus faecalis Proteus mirabilis
[2023-02-26] MEDS: SENNOSIDES-DOCUSATE SODIUM 1 EACH TAB PO SCH (20:50)
[2023-02-26] MEDS: ALPRAZolam 0.25 MG TAB PO PRN (20:53)
[2023-02-26] MEDS ORDERED: OLANZapine 5 MG TAB PO SCH (21:00)
[2023-02-26] MEDS ORDERED: MIRTAZAPINE 15 MG TAB PO SCH (21:00)
[2023-02-26] MEDS ORDERED: ATORVASTATIN 20 MG TAB PO SCH (21:00)
[2023-02-27] MEDS: SODIUM CHLORIDE 0.9% 1,000 ML IV SCH
[2023-02-27] MEDS: ACETAMINOPHEN TAB 500 MG TAB PO SCH ×3 (05:33→11:59)
[2023-02-27] MEDS: ENOXAPARIN 40 MG/0.4 ML SYRINGE SQ SCH (08:22)
[2023-02-27] MEDS: DIVALPROEX 250 MG TABLET.DR PO SCH (08:22)
[2023-02-27] MEDS: ESCITALOPRAM 20 MG TAB PO SCH (08:22)
[2023-02-27] MEDS: SENNOSIDES-DOCUSATE SODIUM 1 EACH TAB PO SCH (08:23)
[2023-02-27 09:52] LABS: Basophils % (A) 0 %; Eosinophils # (A) 0.4 k/uL (0-0.7); Eosinophils % (A) 3 %; HCT 25.1 % (34.0-46.0); HGB 7.9 gm/dL (11.4-16.0); Hypochromasia Slight; Lymphocytes # (A) 1.3 k/uL (1.0-4.8); Lymphocytes % (A) 12 %; MCHC 31.6 g/dL (31.0-37.0); Mean Platelet Volume 9.7; Monocytes # (A) 0.9 k/uL (0-1.0); Monocytes % (A) 8 %; Neutrophils # (A) 8.1 k/uL (1.3-7.7); Neutrophils % (A) 73 %; Platelet Count 192 k/uL (150-450); RBC 2.64 m/uL (3.80-5.40); RDW 13.4 % (11.5-15.5)
[2023-02-27 12:27] VITALS: BMI 28.1
--- NOTE | 2023-02-27 13:33 | P.DS ---
Providers Date of admission: 02/22/23 20:37 Expected date of discharge: 02/27/23 Attending physician: Yessica Baptiste DO Consults: 02/22/23 20:37 Consult Physician Routine Consulting Provider: Liu Louis Consult Reason/Comments: medical management Do you want consulting provider notified?: Already Contacted Primary care physician: Lavon Wilkerson MD Hospital Course: Discharge Diagnosis: Acute blood loss anemia Right proximal femur fracture status post repair Dyslipidemia Dementia with behavioral disturbance Hospital Course: 87-year-old female with dementia, dyslipidemia, and vitamin D deficiency who presented to the emergency room with all her adult foster care. In the ER she was found to have a comminuted right proximal femur fracture with varus angulation. She is status post repair. Was found to have acute blood loss anemia, CT abdomen and pelvis shows postsurgical changes in right proximal femur, small to soft tissue hematomas in this region, urine fibroids. Hemoglobin now trending up. Hemodynamically stable. Patient seen and examined at bedside. Vital signs reviewed and stable. General: nontoxic, no distress, appears at stated age Derm: warm, dry Head: atraumatic, normocephalic, symmetric Eyes: EOMI, no lid lag, anicteric sclera Mouth: no lip lesion, mucus membranes moist Cardiovascular: S1S2 reg, no murmur Lungs: CTA bilateral, no rhonchi, no rales , no accessory muscle use Abdominal: soft, nontender to palpation, no guarding, no appreciable organomegaly Ext: no gross muscle atrophy, no edema, no contractures Neuro: CN II-XI grossly intact, no focal neuro deficits Psych: Alert A total of 33 minutes of time were spent preparing this complex discharge summary. Patient was discharged on 02/27/23 at 1247. Assessment: Right hip IT fracture Patient Condition at Discharge: Stable Plan - Discharge Summary Discharge Rx Participant: No New Discharge Prescriptions: New HYDROcodone/APAP 5-325MG [[place] 5-325] 1 tab PO Q6HR PRN #21 tab PRN Reason: Pain Sennosides/Docusate Sodium [Senna Plus 8.6-50 mg Softgel] 1 each PO DAILY #20 capsule Enoxaparin [Lovenox] 40 mg SQ DAILY #28 each Continue Aspirin [Adult Low Dose Aspirin EC] 81 mg PO DAILY Magnesium Hydroxide [Milk of Magnesia] 1,200 mg PO DAILY PRN PRN Reason: Constipation OLANZapine 5 mg PO HS Atorvastatin [Lipitor] 20 mg PO HS guaiFENesin [guaiFENesin Oral Solution] 400 mg PO Q6H PRN PRN Reason: cough/congestion diphenhydrAMINE & Zinc Cream [Benadryl Cream] 1 applic TOPICAL TID PRN PRN Reason: Itching Divalproex [Depakote] 250 mg PO DAILY Lactulose 10 gm PO DAILY Benzonatate [Tessalon Perle] 200 mg PO TID PRN PRN Reason: Cough Nystatin 100,000 Unit/gm Powd [Mycostatin Powder] 1 applic TOPICAL BID PRN PRN Reason: yeast infection ALPRAZolam [Xanax] 0.25 mg PO Q8H PRN PRN Reason: Anxiety Lactose-Reduced Food [Boost] 237 ml PO DAILY Mirtazapine 30 mg PO HS Erythromycin Ophth Oint [Romycin Ophth Oint] 0.5 inch LEFT EYE BID Escitalopram [Lexapro] 20 mg PO DAILY Acetaminophen [Tylenol Arthritis] 650 mg PO BID Sennosides/Docusate Sodium [Senna Plus 8.6-50 mg Softgel] 1 cap PO BID Discharge Medication List Aspirin [Adult Low Dose Aspirin EC] 81 mg PO DAILY 12/21/18 [History] Magnesium Hydroxide [Milk of Magnesia] 1,200 mg PO DAILY PRN 12/21/18 [History] ALPRAZolam [Xanax] 0.25 mg PO Q8H PRN 05/10/22 [History] Atorvastatin [Lipitor] 20 mg PO HS 05/10/22 [History] Lactose-Reduced Food [Boost] 237 ml PO DAILY 05/10/22 [History] Nystatin 100,000 Unit/gm Powd [Mycostatin Powder] 1 applic TOPICAL BID PRN 05/10/22 [History] OLANZapine 5 mg PO HS 05/10/22 [History] guaiFENesin [guaiFENesin Oral Solution] 400 mg PO Q6H PRN 05/10/22 [History] Acetaminophen [Tylenol Arthritis] 650 mg PO BID 02/22/23 [History] Benzonatate [Tessalon Perle] 200 mg PO TID PRN 02/22/23 [History] Divalproex [Depakote] 250 mg PO DAILY 02/22/23 [History] Erythromycin Ophth Oint [Romycin Ophth Oint] 0.5 inch LEFT EYE BID 02/22/23 [History] Escitalopram [Lexapro] 20 mg PO DAILY 02/22/23 [History] Lactulose 10 gm PO DAILY 02/22/23 [History] Mirtazapine 30 mg PO HS 02/22/23 [History] Sennosides/Docusate Sodium [Senna Plus 8.6-50 mg Softgel] 1 cap PO BID 02/22/23 [History] diphenhydrAMINE & Zinc Cream [Benadryl Cream] 1 applic TOPICAL TID PRN 02/22/23 [History] Enoxaparin [Lovenox] 40 mg SQ DAILY #28 each 02/25/23 [Rx] HYDROcodone/APAP 5-325MG [[place] 5-325] 1 tab PO Q6HR PRN #21 tab 02/25/23 [Rx] Sennosides/Docusate Sodium [Senna Plus 8.6-50 mg Softgel] 1 each PO DAILY #20 capsule 02/25/23 [Rx] Follow up Appointment(s)/Referral(s): Lavon Wilkerson MD [Primary Care Provider] - 1-2 days Rajan Herron DO [Doctor of Osteopathic Medicine] - 2 Weeks Patient Instructions/Handouts: ORIF of Hip Fracture (DC) Activity/Diet/Wound Care/Special Instructions: Discharge instructions: 1. Wound care and infection precautions, keep incision dry and covered while showering, no lotions, creams, moisturizers. No soaking, tubs, pools, hottubs. Do not scrub over the incision. 2. Weight-bear as tolerated with walker / cane until follow-up. 3. Ice and elevate when necessary. Do not exceed 20 minutes per hour with ice pack. 4. Utilize compression sleeve until seen at first follow up appointment. 5. Nursing care 6. Physical therapy 7. Pain meds and anticoagulants per prescription. 8. Pain medication has potential to cause constipation. Increase oral fluid and fiber intake. Contact primary care provider if you have not had a bowel movement within 48 hours after discharge 9. No anti-inflammatory medication until discussed at first post operative visit, this including Motrin, Aleve, Mobic, Diclofenac. 10. Follow up in office at [address] Rajan Herron 11. Follow up with your primary care doctor 7-10 days after discharge. 12. Contact [facility] with any questions, . Keep incision clean, dry and intact. Silver foam dressing may be removed on 03/01/2023. Okay to shower over incision once silver foam dressings are removed Discharge Disposition: TRANSFER TO SNF/ECF
[2023-02-27 14:40] VITALS: BP 161/87; PULSE 91; RESP 14; TEMP 99
== END 2023-02-27 15:50 | DRG 481 ==
LOC: EC 17:52 → 6NMEDSUR 20:37 → 4SSUR 20:47 → 5NMEDONC 02-23 19:38
PROVIDERS: ADMIT Internal Medicine; ATTEND Internal Medicine
PROC: 0QS606Z Reposition Right Upper Femur with Intramedullary Internal Fixation Device, Open Approach (ICD-10-PCS; principal; 2023-02-23 10:45)
DX: S72.091A Other fracture of head and neck of right femur, initial encounter for closed fracture (principal); D62 Acute posthemorrhagic anemia; F02.818 Dementia in other diseases classified elsewhere, unspecified severity, with other behavioral disturbance; F02.84 Dementia in other diseases classified elsewhere, unspecified severity, with anxiety; F02.83 Dementia in other diseases classified elsewhere, unspecified severity, with mood disturbance; G30.9 Alzheimer's disease, unspecified; J84.10 Pulmonary fibrosis, unspecified; I10 Essential (primary) hypertension; M21.151 Varus deformity, not elsewhere classified, right hip; E78.5 Hyperlipidemia, unspecified; E55.9 Vitamin D deficiency, unspecified; R01.1 Cardiac murmur, unspecified; D25.9 Leiomyoma of uterus, unspecified; W18.30XA Fall on same level, unspecified, initial encounter; Z79.82 Long term (current) use of aspirin; Z79.899 Other long term (current) drug therapy; Y92.129 Unspecified place in nursing home as the place of occurrence of the external cause; Z87.891 Personal history of nicotine dependence
CPT/HCPCS: 36415; 70450; 71045; 72125; 73501; 73502; 74176; 80048; 80053; 81001; 82728; 83540; 83550; 85025; 85027; 85610; 85730; 87077; 87086; 87186; 96361; 96374; 96376; 99285

== ENCOUNTER 2023-12-18 20:12 | Emergency (ER) | payer MEDICARE ==
[2023-12-18 21:12] LABS: Basophils # (A) 0.1 k/uL (0-0.2); Basophils % (A) 1 %; Eosinophils # (A) 0.3 k/uL (0-0.7); Eosinophils % (A) 3 %; HCT 35.7 % (34.0-46.0); HGB 11.6 gm/dL (11.4-16.0); Lymphocytes # (A) 1.3 k/uL (1.0-4.8); Lymphocytes % (A) 11 %; MCHC 32.5 g/dL (31.0-37.0); MCV 95.5 fL (80.0-100.0); Mean Platelet Volume 8.4; Monocytes # (A) 0.7 k/uL (0-1.0); Monocytes % (A) 6 %; Neutrophils # (A) 9.5 k/uL (1.3-7.7); Neutrophils % (A) 78 %; Platelet Count 187 k/uL (150-450); RBC 3.74 m/uL (3.80-5.40); RDW 13.3 % (11.5-15.5); WBC 12.1 k/uL (3.8-10.6)
[2023-12-18 21:27] LABS: ALT 14 U/L (4-34); AST 25 U/L (14-36); African American GFR (CKD) 64 (>60 ml/min/1.73 sqM); Albumin 3.9 g/dL (3.5-5.0); Alkaline Phosphatase 81 U/L (38-126); Anion Gap 6 mmol/L; Blood Urea Nitrogen 36 mg/dL (7-17); Calcium 9.1 mg/dL (8.4-10.2); Carbon Dioxide 25 mmol/L (22-30); Chloride 109 mmol/L (98-107); Glucose 97 mg/dL (74-99); Non-African American GFR(CKD) 55 (>60 ml/min/1.73 sqM); Potassium 4.2 mmol/L (3.5-5.1); Sodium 140 mmol/L (137-145); Total Bilirubin 0.4 mg/dL (0.2-1.3); Total Protein 6.9 g/dL (6.3-8.2)
[2023-12-18 21:37] LABS: Glucose,Whole Blood 100 mg/dL (70-110)
[2023-12-18 21:51] LABS: INR 1.1 (<1.2); Partial Thromboplastin Time 23.2 sec (22.0-30.0); Prothrombin Time 11.5 sec (10.0-12.5)
--- NOTE | 2023-12-18 21:55 | ED ---
General Adult HPI - General Chief complaint: Altered Mental Status Stated complaint: AMS Time Seen by Provider: 12/18/23 20:37 Source: EMS Mode of arrival: EMS Limitations: altered mental status - History of Present Illness Initial comments: This patient is 88-year-old woman sent from jail to have evaluation after she had an episode of vomiting tonight. Report is that the staff at the jail gave medications and then after that the patient had an episode of vomiting. They also noticed that she was being quieter than usual. Apparently the patient is usually somewhat verbal and was not vocalizing tonight. The patient reportedly not oriented at all and nonambulatory at baseline. No history available from the patient. -: hour(s) Consistency: constant Worsens with: none Associated Symptoms: nausea/vomiting Treatments Prior to Arrival: none - Related Data Home Medications Medication Instructions Recorded Confirmed Aspirin [Adult Low Dose Aspirin EC] 81 mg PO DAILY 12/21/18 02/22/23 Magnesium Hydroxide [Milk of 1,200 mg PO DAILY PRN 12/21/18 02/22/23 Magnesia] Atorvastatin [Lipitor] 20 mg PO HS 05/10/22 02/22/23 Lactose-Reduced Food [Boost] 237 ml PO DAILY 05/10/22 02/22/23 Nystatin 100,000 Unit/gm Powd 1 applic TOPICAL BID PRN 05/10/22 02/22/23 [Mycostatin Powder] OLANZapine 5 mg PO HS 05/10/22 02/22/23 guaiFENesin [guaiFENesin Oral 400 mg PO Q6H PRN 05/10/22 02/22/23 Solution] Acetaminophen [Tylenol Arthritis] 650 mg PO BID 02/22/23 02/22/23 Benzonatate [Tessalon Perle] 200 mg PO TID PRN 02/22/23 02/22/23 Divalproex [Depakote] 250 mg PO DAILY 02/22/23 02/22/23 Erythromycin Ophth Oint [Romycin 0.5 inch LEFT EYE BID 02/22/23 02/22/23 Ophth Oint] Escitalopram [Lexapro] 20 mg PO DAILY 02/22/23 02/22/23 Lactulose 10 gm PO DAILY 02/22/23 02/22/23 Mirtazapine 30 mg PO HS 02/22/23 02/22/23 Sennosides/Docusate Sodium [Senna 1 cap PO BID 02/22/23 02/22/23 Plus 8.6-50 mg Softgel] diphenhydrAMINE & Zinc Cream 1 applic TOPICAL TID PRN 02/22/23 02/22/23 [Benadryl Cream] Previous Rx's Medication Instructions Recorded Enoxaparin [Lovenox] 40 mg SQ DAILY #28 each 02/25/23 HYDROcodone/APAP 5-325MG [[place] 1 tab PO Q6HR PRN #21 tab 02/25/23 5-325] Sennosides/Docusate Sodium [Senna 1 each PO DAILY #20 capsule 02/25/23 Plus 8.6-50 mg Softgel] Allergies Allergy/AdvReac Type Severity Reaction Status Date / Time No Known Allergies Allergy Verified 12/18/23 20:25 Review of Systems ROS Statement: Those systems with pertinent positive or pertinent negative responses have been documented in the HPI. ROS Other: All systems not noted in ROS Statement are negative. Limitations: ROS unobtainable due to patients medical condition Past Medical History Past Medical History: Chest Pain / Angina, Dementia, Hypertension Additional Past Medical History / Comment(s): alzheimers dementia, pulmonary fibrosis and angina anxiety, orthostatic hypotension History of Any Multi-Drug Resistant Organisms: None Reported Past Surgical History: Appendectomy Past Anesthesia/Blood Transfusion Reactions: Unable to Obtain Past Psychological History: Anxiety, Depression Smoking Status: Never smoker Past Alcohol Use History: Unable to Obtain Past Drug Use History: Unable to Obtain - Past Family History Father Additional Family Medical History / Comment(s): Unable to obtain due to mental status General Exam Limitations: altered mental status General appearance: alert, in no apparent distress Head exam: Present: atraumatic, normocephalic Eye exam: Present: normal appearance, PERRL, EOMI. Absent: scleral icterus, conjunctival injection ENT exam: Present: mucous membranes dry Neck exam: Present: normal inspection, full ROM. Absent: tenderness, meningismus Respiratory exam: Present: normal lung sounds bilaterally. Absent: respiratory distress, wheezes, rales, rhonchi, stridor, accessory muscle use Cardiovascular Exam: Present: regular rate, normal rhythm, normal heart sounds. Absent: systolic murmur, diastolic murmur, rubs, gallop GI/Abdominal exam: Present: soft. Absent: distended, tenderness, guarding, rebound, rigid, mass Extremities exam: Present: normal inspection, normal capillary refill. Absent: tenderness, pedal edema Back exam: Present: normal inspection Neurological exam: Present: alert, other (The patient is completely disoriented and not able to cooperate with neurologic exam. She does move all 4 extrem ities.) Skin exam: Present: warm, dry, intact, normal color. Absent: rash Course Vital Signs 12/18/23 12/18/23 12/18/23 20:16 21:24 23:00 Temperature 98.6 F Pulse Rate 97 88 86 Respiratory 14 18 16 Rate Blood Pressure 95/51 100/51 104/56 O2 Sat by Pulse 97 98 94 L Oximetry 12/19/23 12/19/23 00:00 01:51 Temperature 98.5 F Pulse Rate 78 75 Respiratory 14 16 Rate Blood Pressure 99/66 101/56 O2 Sat by Pulse 92 L 99 Oximetry EKG Findings - EKG Results: EKG: interpreted by ERMD, sinus rhythm (Rate 88 bpm), normal axis, normal ST/T - [place], Pacemaker, Normal: Myocardial infarction: septal [place] (old age or indeterminate) (Old septal infarct) Medical Decision Making - Medical Decision Making The patient had chest x-ray which I interpreted as negative for acute infiltrate, pneumothorax, congestive heart failure Patient sent from jail to have evaluation after she was less verbal than usual. On arrival the patient does appear somewhat dry and is given IV fluids. The patient then is verbal, she does appear to be babbling and per nursing that is her baseline. There is no evident distress. Patient appears stable to return to long-term care facility. Was pt. sent in by a medical professional or institution (, PA, KARATE INSTRUCTOR, urgent care, hospital, or jail...) When possible be specific @ -[Yes sent from jail for evaluation Did you speak to anyone other than the patient for history (EMS, parent, family, police, friend...)? What history was obtained from this source @ -[No] Did you review nursing and triage notes (agree or disagree)? Why? @ -[I reviewed and agree with nursing and triage notes] Were old charts reviewed (outside hosp., previous admission, EMS record, old EKG, old radiological studies, urgent care reports/EKG's, jail records)? Report findings @ -[No old charts were reviewed] Differential Diagnosis (chest pain, altered mental status, abdominal pain women, abdominal pain men, vaginal bleeding, weakness, fever, dyspnea, syncope, headache, dizziness, GI bleed, back pain, seizure, CVA, palpatations, mental health, musculoskeletal)? @ -[Differential Weakness: Hypoglycemia, shock, sepsis, hyponatremia, anemia, infection, [place], ETOH, adverse medicine reaction, overdose, stroke, this is not meant to be an all-inclusive list. EKG interpreted by me (3pts min.). @ -[I interpreted as above] X-rays interpreted by me (1pt min.). @ -[I interpreted as above CT interpreted by me (1pt min.). @ -[None done] U/S interpreted by me (1pt. min.). @ -[None done] What testing was considered but not performed or refused? (CT, X-rays, U/S, labs)? Why? @ -[None] What meds were considered but not given or refused? Why? @ -[None] Did you discuss the management of the patient with other professionals (professionals i.e. , PA, KARATE INSTRUCTOR, lab, RT, psych nurse, social worker aide, pre k special education teacher, teacher, marketing officer, case management director)? Give summary @ -[No] Was smoking cessation discussed for >3mins.? @ -[No] Was critical care preformed (if so, how long)? @ -[No] Were there social determinants of health that impacted care today? How? (Homelessness, low income, unemployed, alcoholism, drug addiction, transportation, low edu. Level, literacy, decrease access to med. care, penitentiary, rehab)? @ -[No] Was there de-escalation of care discussed even if they declined (Discuss DNR or withdrawal of care, Hospice)? DNR status @ -[No] What co-morbidities impacted this encounter? (DM, HTN, Smoking, COPD, CAD, Cancer, CVA, ARF, Chemo, Hep., AIDS, mental health diagnosis, sleep apnea, morbid obesity)? @ -[None] Was patient admitted / discharged? Hospital course, mention meds given and route, prescriptions, significant lab abnormalities, going to OR and other pertinent info. @ -[As above Undiagnosed new problem with uncertain prognosis? @ -[No] Drug Therapy requiring intensive monitoring for toxicity (Heparin, Nitro, Insulin, Cardizem)? @ -[No] Were any procedures done? @ -[No] Diagnosis/symptom? @ -[Acute dehydration Acute generalized weakness Acute, or Chronic, or Acute on Chronic? @ -[Acute Uncomplicated (without systemic symptoms) or Complicated (systemic symptoms)? @ -[Uncomplicated Side effects of treatment? @ -[No] Exacerbation, Progression, or Severe Exacerbation? @ -[No] Poses a threat to life or bodily function? How? (Chest pain, [place], [place], pneumonia, PE, COPD, DKA, ARF, appy, cholecystitis, CVA, Diverticulitis, Homicidal, Suicidal, threat to staff... and all critical care pts) @ -[No] - Lab Data Result diagrams: 12/18/23 20:58 12/18/23 20:58 Lab Results 12/18/23 12/18/23 12/18/23 Range/Units 20:58 20:58 21:31 WBC 12.1 H (3.8-10.6) k/uL RBC 3.74 L (3.80-5.40) m/uL Hgb 11.6 (11.4-16.0) gm/dL Hct 35.7 (34.0-46.0) % MCV 95.5 (80.0-100.0) fL MCH 31.0 (25.0-35.0) pg MCHC 32.5 (31.0-37.0) g/dL RDW 13.3 (11.5-15.5) % Plt Count 187 (150-450) k/uL MPV 8.4 Neutrophils % 78 % Lymphocytes % 11 % Monocytes % 6 % Eosinophils % 3 % Basophils % 1 % Neutrophils # 9.5 H (1.3-7.7) k/uL Lymphocytes # 1.3 (1.0-4.8) k/uL Monocytes # 0.7 (0-1.0) k/uL Eosinophils # 0.3 (0-0.7) k/uL Basophils # 0.1 (0-0.2) k/uL PT 11.5 (10.0-12.5) sec INR 1.1 (<1.2) APTT 23.2 (22.0-30.0) sec Sodium 140 (137-145) mmol/L Potassium 4.2 (3.5-5.1) mmol/L Chloride 109 H (98-107) mmol/L Carbon Dioxide 25 (22-30) mmol/L Anion Gap 6 mmol/L BUN 36 H (7-17) mg/dL Creatinine 0.94 (0.52-1.04) mg/dL Est GFR (CKD-EPI)AfAm 64 (>60 ml/min/1.73 sqM) Est GFR (CKD-EPI)NonAf 55 (>60 ml/min/1.73 sqM) Glucose 97 (74-99) mg/dL POC Glucose (mg/dL) (70-110) mg/dL POC Glu Lens Coating Technician ID Calcium 9.1 (8.4-10.2) mg/dL Total Bilirubin 0.4 (0.2-1.3) mg/dL AST 25 (14-36) U/L ALT 14 (4-34) U/L Alkaline Phosphatase 81 (38-126) U/L Troponin I (0.000-0.034) ng/mL Total Protein 6.9 (6.3-8.2) g/dL Albumin 3.9 (3.5-5.0) g/dL 12/18/23 12/18/23 Range/Units 21:31 21:36 WBC (3.8-10.6) k/uL RBC (3.80-5.40) m/uL Hgb (11.4-16.0) gm/dL Hct (34.0-46.0) % MCV (80.0-100.0) fL MCH (25.0-35.0) pg MCHC (31.0-37.0) g/dL RDW (11.5-15.5) % Plt Count (150-450) k/uL MPV Neutrophils % % Lymphocytes % % Monocytes % % Eosinophils % % Basophils % % Neutrophils # (1.3-7.7) k/uL Lymphocytes # (1.0-4.8) k/uL Monocytes # (0-1.0) k/uL Eosinophils # (0-0.7) k/uL Basophils # (0-0.2) k/uL PT (10.0-12.5) sec INR (<1.2) APTT (22.0-30.0) sec Sodium (137-145) mmol/L Potassium (3.5-5.1) mmol/L Chloride (98-107) mmol/L Carbon Dioxide (22-30) mmol/L Anion Gap mmol/L BUN (7-17) mg/dL Creatinine (0.52-1.04) mg/dL Est GFR (CKD-EPI)AfAm (>60 ml/min/1.73 sqM) Est GFR (CKD-EPI)NonAf (>60 ml/min/1.73 sqM) Glucose (74-99) mg/dL POC Glucose (mg/dL) 100 (70-110) mg/dL POC Glu Lens Coating Technician ID Davidson, Hollie Calcium (8.4-10.2) mg/dL Total Bilirubin (0.2-1.3) mg/dL AST (14-36) U/L ALT (4-34) U/L Alkaline Phosphatase (38-126) U/L Troponin I <0.012 (0.000-0.034) ng/mL Total Protein (6.3-8.2) g/dL Albumin (3.5-5.0) g/dL Disposition Clinical Impression: Dehydration Disposition: HOME SELF-CARE Condition: Fair Instructions (If sedation given, give patient instructions): Dehydration (DC), Altered Mental Status (ED) Is patient prescribed a controlled substance at d/c from ED?: No Referrals: Lavon Wilkerson MD [Primary Care Provider] - 1-2 days
[2023-12-18] MEDS: LORazepam 2 MG/ML INJ IV STA (22:02)
[2023-12-18] MEDS: SODIUM CHLORIDE 0.9% 500 ML 500 ML IV STA (22:52)
--- NOTE | 2023-12-19 | XR ---
EXAM: XR chest 1V portable CLINICAL INDICATION:Female, 88 years old with history of altered mental status; [facility] COMPARISON: Chest x-ray 02/22/2023 TECHNIQUE: Chest single view. FINDINGS: Lines/tubes/devices: None. Cardiomediastinum: Stable enlargement of the cardiomediastinal silhouette. Partially calcified aorta with prominent tort uosity and unfolding. Vasculature: No increased pulmonary vasculature. Lungs/pleura: No consolidation, sizeable effusion, or visible pneumothorax. Bones/soft tissues: Bony thorax appears grossly intact as seen. Mild/moderate degenerative changes of the right more than left shoulder, as well as the dorsal spine. Regional soft tissues appear unremarkable. IMPRESSION: No acute cardiopulmonary findings.
[2023-12-19 02:12] VITALS: BP 101/56; PULSE 75; RESP 16; TEMP 98.5
== END 2023-12-19 02:21 | disposition home or self-care (01) ==
LOC: EC 20:12
DX: E86.0 Dehydration (principal)
CPT/HCPCS: 36415; 93005; 80053; 84484; 85025; 85610; 85730; 71045; 99285; 96374; J2060

== ENCOUNTER 2023-12-29 18:42 | Emergency (ER) | payer MEDICARE ==
--- NOTE | 2023-12-29 19:08 | ED ---
Fall HPI - General Chief Complaint: Fall Stated Complaint: Fall-Head injury Time Seen by Provider: 12/29/23 18:49 Source: EMS Mode of arrival: EMS - History of Present Illness Initial Comments: 88-year-old female presenting to the ED with a chief complaint of fall. Patient normally verbal at baseline however repeats words and does not provide comprehensive history. Spoke to nursing staff at [facility], who reports that she was found on the ground. Unwitnessed fall. States that they noticed a bruise to the back of her head and sent her here for further evaluation. They deny blood thinner use. They report that the patient is at her baseline. States that the patient will sometimes try and ambulate however is normally nonambulatory. - Related Data Home Medications Medication Instructions Recorded Confirmed Aspirin [Adult Low Dose Aspirin EC] 81 mg PO DAILY 12/21/18 02/22/23 Magnesium Hydroxide [Milk of 1,200 mg PO DAILY PRN 12/21/18 02/22/23 Magnesia] Atorvastatin [Lipitor] 20 mg PO HS 05/10/22 02/22/23 Lactose-Reduced Food [Boost] 237 ml PO DAILY 05/10/22 02/22/23 Nystatin 100,000 Unit/gm Powd 1 applic TOPICAL BID PRN 05/10/22 02/22/23 [Mycostatin Powder] OLANZapine 5 mg PO HS 05/10/22 02/22/23 guaiFENesin [guaiFENesin Oral 400 mg PO Q6H PRN 05/10/22 02/22/23 Solution] Acetaminophen [Tylenol Arthritis] 650 mg PO BID 02/22/23 02/22/23 Benzonatate [Tessalon Perle] 200 mg PO TID PRN 02/22/23 02/22/23 Divalproex [Depakote] 250 mg PO DAILY 02/22/23 02/22/23 Erythromycin Ophth Oint [Romycin 0.5 inch LEFT EYE BID 02/22/23 02/22/23 Ophth Oint] Escitalopram [Lexapro] 20 mg PO DAILY 02/22/23 02/22/23 Lactulose 10 gm PO DAILY 02/22/23 02/22/23 Mirtazapine 30 mg PO HS 02/22/23 02/22/23 Sennosides/Docusate Sodium [Senna 1 cap PO BID 02/22/23 02/22/23 Plus 8.6-50 mg Softgel] diphenhydrAMINE & Zinc Cream 1 applic TOPICAL TID PRN 02/22/23 02/22/23 [Benadryl Cream] Previous Rx's Medication Instructions Recorded Enoxaparin [Lovenox] 40 mg SQ DAILY #28 each 02/25/23 HYDROcodone/APAP 5-325MG [[place] 1 tab PO Q6HR PRN #21 tab 02/25/23 5-325] Sennosides/Docusate Sodium [Senna 1 each PO DAILY #20 capsule 02/25/23 Plus 8.6-50 mg Softgel] Allergies Allergy/AdvReac Type Severity Reaction Status Date / Time No Known Allergies Allergy Verified 12/18/23 20:25 Review of Systems ROS Statement: Those systems with pertinent positive or pertinent negative responses have been documented in the HPI. ROS Other: All systems not noted in ROS Statement are negative. Past Medical History Past Medical History: Chest Pain / Angina, Dementia, Hypertension Additional Past Medical History / Comment(s): alzheimers dementia, pulmonary fibrosis and angina anxiety, orthostatic hypotension History of Any Multi-Drug Resistant Organisms: None Reported Past Surgical History: Appendectomy Past Anesthesia/Blood Transfusion Reactions: Unable to Obtain Past Psychological History: Anxiety, Depression Smoking Status: Never smoker Past Alcohol Use History: Unable to Obtain Past Drug Use History: Unable to Obtain - Past Family History Father Additional Family Medical History / Comment(s): Unable to obtain due to mental status General Exam Limitations: altered mental status General appearance: alert Eye exam: Present: normal appearance Neck exam: Present: normal inspection Respiratory exam: Present: normal lung sounds bilaterally Cardiovascular Exam: Present: regular rate GI/Abdominal exam: Present: soft Extremities exam: Present: other (Full passive range of motion of bilateral upper and lower extremities. No tenderness to palpation, obvious deformity, step-off, or crepitus of bilateral upper lower extremities. Pelvis stable upon rocking. Radial pulses, DP/PT pulses intact.) Back exam: Present: normal inspection, other (No midline spinal tenderness to palpation.) Neurological exam: Present: alert (Patient will repetitively speak the same words upon questioning. Unable to provide history. Does however follow commands) Skin exam: Present: warm, dry Course Vital Signs 12/29/23 12/29/23 18:43 22:31 Temperature 97 F L Pulse Rate 79 72 Respiratory 18 20 Rate Blood Pressure 111/60 143/69 O2 Sat by Pulse 92 L 91 L Oximetry Medical Decision Making - Medical Decision Making Was pt. sent in by a medical professional or institution (SHERRI Nguyen, BUSINESS INTELLIGENCE ADMINISTRATOR, urgent care, hospital, or alf...) When possible be specific @ -[facility] Did you speak to anyone other than the patient for history (EMS, parent, family, police, friend...)? What history was obtained from this source @ -Spoke to nursing staff at [facility], who provided the entirety of the history. For further details please see HPI. Did you review nursing and triage notes (agree or disagree)? Why? @ -I reviewed and agree with nursing and triage notes Were old charts reviewed (outside hosp., previous admission, EMS record, old EKG, old radiological studies, urgent care reports/EKG's, alf records)? Report findings @ -No old charts were reviewed Differential Diagnosis (chest pain, altered mental status, abdominal pain women, abdominal pain men, vaginal bleeding, weakness, fever, dyspnea, syncope, headache, dizziness, GI bleed, back pain, seizure, CVA, palpatations, mental health, musculoskeletal)? @ -Differential Musculoskeletal Muscular strain, contusion, ligament sprain, fracture, arthritis, septic arthritis, bursitis, cellulitis, muscle spasm, nerve compression, DVT, arterial occlusion, herpes zoster, electrolyte abnormality, tumor.... This is not meant to be in all inclusive list EKG interpreted by me (3pts min.). @ -None X-rays interpreted by me (1pt min.). @ -X-ray of the chest, lumbar spine, pelvis interpreted me which revealed no evidence of acute finding. CT interpreted by me (1pt min.). @ -CT brain and cervical spine to primary which revealed no evidence of acute finding. U/S interpreted by me (1pt. min.). @ -None done What testing was considered but not performed or refused? (CT, X-rays, U/S, labs)? Why? @ -None What meds were considered but not given or refused? Why? @ -None Did you discuss the management of the patient with other professionals (professionals i.e. Dr., PA, BUSINESS INTELLIGENCE ADMINISTRATOR, lab, RT, psych nurse, social worker delinquency prevention, slot supervisor, teacher, global safety officer, rifle case repairer)? Give summary @ -No Was smoking cessation discussed for >3mins.? @ -No Was critical care preformed (if so, how long)? @ -No Were there social determinants of health that impacted care today? How? (Homelessness, low income, unemployed, alcoholism, drug addiction, transportation, low edu. Level, literacy, decrease access to med. care, group home, rehab)? @ -No Was there de-escalation of care discussed even if they declined (Discuss DNR or withdrawal of care, Hospice)? DNR status @ -No What co-morbidities impacted this encounter? (DM, HTN, Smoking, COPD, CAD, Cancer, CVA, ARF, Chemo, Hep., AIDS, mental health diagnosis, sleep apnea, morbid obesity)? @ -Dementia, bedbound Was patient admitted / discharged? Hospital course, mention meds given and route, prescriptions, significant lab abnormalities, going to OR and other per tinent info. @ -Discharge 88-year-old female presenting to the ED from [facility]. Patient reported to be at her baseline. Reports that the patient is normally bedbound however does attempt to get up and move sometimes. States today, nursing staff found her on the floor and noticed a small bump onto the back of her head and sent the patient here for further evaluation. Imaging studies including CT of the brain and cervical spine, x-ray of the chest, lumbar spine, pelvis revealed no evidence of acute finding. Patient had no evidence of injury to her extremities as noted on physical exam. Patient discharged back in stable condition. Undiagnosed new problem with uncertain prognosis? @ -No Drug Therapy requiring intensive monitoring for toxicity (Heparin, Nitro, Insulin, Cardizem)? @ -No Were any procedures done? @ -No Diagnosis/symptom? @ -Status post fall Acute, or Chronic, or Acute on Chronic? @ -Acute Uncomplicated (without systemic symptoms) or Complicated (systemic symptoms)? @ -Uncomplicated Side effects of treatment? @ -No Exacerbation, Progression, or Severe Exacerbation? @ -No Poses a threat to life or bodily function? How? (Chest pain, [place], [place], pneumonia, PE, COPD, DKA, ARF, appy, cholecystitis, CVA, Diverticulitis, Homicidal, Suicida l, threat to staff... and all critical care pts) @ -No Disposition Clinical Impression: Fall Disposition: HOME SELF-CARE Condition: Good Additional Instructions: Please return to the Emergency Department if symptoms worsen or any other concerns. Is patient prescribed a controlled substance at d/c from ED?: No Referrals: Lavon Wilkerson MD [Primary Care Provider] - 1-2 days Time of Disposition: 23:12
--- NOTE | 2023-12-29 20:38 | CT ---
EXAMINATION TYPE: CT brain cspine wo con CT DLP: 1097.90 mGycm, Automated exposure control for dose reduction was used. DATE OF EXAM: 12/29/2023 8:02 PM COMPARISON: CT brain 01/07/2018 CLINICAL INDICATION:Female, 88 years old with history of s/p fall on thinners; S/P fall on thinners. Dementia. TECHNIQUE: Brain: Multiple axial CT images of the brain were obtained without IV contrast. Cspine: Axial CT images from the skull base to the inferior aspect of T2 we obtained without intraven ous contrast. Coronal and sagittal reformatted images were also reviewed. FINDINGS: Brain: Extra-axial spaces: No abnormal extra-axial fluid collections. Ventricular system: Within normal limits Cerebral parenchyma: No acute intraparenchymal hemorrhage or mass effect. The bronson-white junction is well differentiated. Scattered hypoattenuating areas are seen within the white matter. Generalized cerebral parenchymal volume loss. Cerebellum: Unremarkable. Mass effect: No evidence of midline shift. Intracranial vasculature: Atherosclerotic calcifications of the intracranial vessels. Soft tissues: Normal. Calvarium/osseous structures: No depressed skull fracture. Paranasal sinuses and mastoid air cells: Clear. Visualized orbits: Orbital contents are intact. Cervical spine: Fracture: None. Osseous structures: Unremarkable Vertebral alignment: Dextrocurvature of the cervical spine is appreciated. Spinal canal/Neural Foramina: No evidence of significant spinal canal narrowing. No evidence for sign ificant neural foraminal stenosis. Neck soft tissues: Prevertebral soft tissues are within normal limits. Other: The airway is patent. The lung apices are clear. Of note, axial spine images were unable to be reviewed secondary due to technical difficulties sendin g images to PACS. IMPRESSION: CT brain: No acute intracranial process. CT cervical spine: 1. No evidence of cervical spine fracture. 2. Moderate multilevel degenerative disc disease.
--- NOTE | 2023-12-29 22:48 | XR ---
EXAM: XR Lumbosacral Spine, 2 or 3 Views CLINICAL HISTORY: ITS.REASON XR Reason: s/p fall r/o fx TECHNIQUE: Frontal and lateral views of the lumbar spine and sacrum. COMPARISON: Comparison made to prior CT scan of the abdomen pelvis from February 25, 2023. FINDINGS: There is a right dynamic hip screw in place. Vertebrae: Unremarkable. No acute fracture. Normal alignment. Diffuse osteopenia throughout the visualized bones. Sacrum/coccyx: Unremarkable as visualized. No acute fracture. Disc spaces: No acute findings. No significant narrowing. Soft tissues: Unremarkable. IMPRESSION: No evidence of acute lumbar spine pathology. There is continued clinical concern, a CT scan may be of benefit for further evaluation.
--- NOTE | 2023-12-29 22:49 | XR ---
EXAM: XR Chest, 1 View CLINICAL HISTORY: ITS.REASON XR Reason: s/p fall r/o fx TECHNIQUE: Frontal view of the chest. COMPARISON: No relevant prior studies available. FINDINGS: Lungs: Unremarkable. No consolidation. Pleural space: Unremarkable. No pneumothorax. Heart: Cardiomegaly. Mediastinum: Unremarkable. Normal mediastinal contour. Bones/joints: High riding right humeral head. No acute fracture. IMPRESSION: No evidence of acute thoracic injury. If there is continued clinical concern, a CT scan may be of benefit for further evaluation.
--- NOTE | 2023-12-29 22:50 | XR ---
EXAM: XR Pelvis, 1 or 2 Views CLINICAL HISTORY: ITS.[email or web address] XR Reason: s/p fall r/o fx TECHNIQUE: Frontal view of the pelvis. COMPARISON: No relevant prior studies available. FINDINGS: Bones/joints: Right dynamic hip screw in place. No acute fracture. No dislocation. Diffuse osteopenia throughout the visualized bones. Soft tissues: Unremarkable. IMPRESSION: No evidence of acute pelvic injury. If there is continued clinical concern, a CT scan may be of benefit for further evaluation.
[2023-12-29 23:54] VITALS: BP 129/92; PULSE 74; RESP 18; TEMP 97.4
== END 2023-12-30 00:02 | disposition home or self-care (01) ==
LOC: EC 18:42
DX: S09.90XA Unspecified injury of head, initial encounter (principal); W18.30XA Fall on same level, unspecified, initial encounter
CPT/HCPCS: 70450; 71045; 72100; 72125; 72170; 99285